=== PATIENT | male | born 1945 | race Caucasian/White ===

== ENCOUNTER 2018-02-22 23:16 | Emergency (ER) | payer MEDICARE ==
[~2018-02-22] VITALS: Ht 177.8 cm; Wt 96.2 kg
[~2018-02-22 23:16] MED LIST: GFCD10B PO; HYDR-707 PO; LISI20TA PO; Levamir; Metformin; NO HOME MEDICATIONS; OMEP-10 PO; TYLENOL#3 PO
--- OUTSIDE RECORDS SUMMARY | 2018-02-22 23:21 | XMS REPORT ---
Author NADIA Meadows Organization [employer] Address Unknown Phone Unavailable Care Team Providers Care Supervisor Metalizing Name Role Phone NADIA HSU CP Unavailable Allergies, Adverse Reactions, Alerts Substance Reaction Event Type Morphine Info Not Available Drug Allergy Problems Problem Type Condition ICD-9 Code Onset Dates Condition Status Problem Other abnormal glucose 790.29 Active Assessment Diabetes mellitus without mention of complication, type II or unspecified type, not stated as uncontrolled 250.00 Active Problem Diabetes mellitus without mention of complication, type II or unspecified type, not stated as uncontrolled 250.00 Active Problem Chronic airway obstruction, not elsewhere classified 496 Active Problem Cervicalgia 723.1 Active Problem Shortness of breath 786.05 Active Problem Unspecified prostatitis 601.9 Active Problem Diabetes mellitus without mention of complication, type II or unspecified type, uncontrolled 250.02 Active Problem Hypertrophy (benign) of prostate with urinary obstruction and other lower urinary tract symptoms [LUTS] 600.01 Active Medications Medication Code System Code Instructions Start Date End Date Status Dosage Metformin HCl [facility] [address]-51 1000 MG Orally Twice a day 1 tablet with meals GlipiZIDE [facility] [address]-75 10 MG Orally TAKE ONE TABLET BY MOUTH ONCE DAILY Lisinopril [facility] 43540432042 20MG TAKE ONE TABLET BY MOUTH ONCE DAILY, NEED FOLLOW UP APPT Finasteride [facility] [address]-34 5 MG Orally Once a day 1 tablet Procedures Procedure Coding System Code Date Office Visit, Est Pt., Level 3 CPT-4 54043 Apr 20, 2015 [facility] VISIT ESTABLISHED PATIENT CPT-4 G0467 Apr 20, 2015 Vital Signs Date/Time: Apr 20, 2015 Temperature 98.0 F Weight 209 lbs Height 70 in BMI 29.99 Index Blood Pressure Diastolic 80 mmHg Blood Pressure Systolic 152 mmHg Cardiac Monitoring Heart Rate 80 bpm Results No Known Results Summary Purpose [employer]ClinicalWorks Submission
--- OUTSIDE RECORDS SUMMARY | 2018-02-22 23:21 | XMS REPORT ---
Author Author NADIA HSU [facility] e[employer] Address Unknown Phone Unavailable Care Team Providers Care Superintendent Division Name Role Phone NADIA HSU CP Unavailable Allergies No Known Allergies Problems Problem Type Condition Code Onset Dates Condition Status Problem Unspecified prostatitis 601.9 Active Problem Hypertrophy (benign) of prostate with urinary obstruction and other lower urinary tract symptoms [LUTS] 600.01 Active Problem Shortness of breath 786.05 Active Assessment Chronic kidney disease N18.9 Active Problem Other abnormal glucose 790.29 Active Problem Chronic kidney disease N18.9 Active Problem Other and unspecified hyperlipidemia 272.4 Active Problem Altered metabolism due to diabetes E11.9 Active Problem Chronic airway obstruction, not elsewhere classified 496 Active Problem Diabetes mellitus without mention of complication, type II or unspecified type, uncontrolled 250.02 Active Problem Cervicalgia 723.1 Active Problem Diabetes mellitus without mention of complication, type II or unspecified type, not stated as uncontrolled 250.00 Active Medications No Known Medications Results No Known Results Summary Purpose [employer]ClinicalWorks Submission
--- OUTSIDE RECORDS SUMMARY | 2018-02-22 23:21 | XMS REPORT ---
Author NADIA Meadows [facility] e[employer] Address Unknown Phone Unavailable Care Team Providers Care Glass Worker Name Role Phone NADIA HSU CP Unavailable Allergies No Known Allergies Problems Problem Type Condition ICD-9 Code Onset [...] urinary tract symptoms [LUTS] 600.01 Active Medications No Known Medications Procedures Procedure Coding System Code Date VENIPUNCT, ROUTINE* CPT-4 62749 Apr 26, 2015 LAB NOT BILLED BY [facility] CPT-4 NOBLL Apr 26, 2015 Results Name Result Date Reference Range Unit Abnormality Flag ROUTINE VENIPUNCTURE Summary Purpose eClinicalWorks Submission
--- OUTSIDE RECORDS SUMMARY | 2018-02-22 23:21 | XMS REPORT ---
Author Author NADIA HSU [facility] [employer] Address Unknown Phone Unavailable Care Team Providers Care Underwear Finisher Name Role Phone NADIA HSU CP Unavailable Allergies No Known Allergies Problems Problem Type Condition Code Onset Dates Condition Status Problem Hypertension I10 Active Problem Hyperlipidemia E78.5 Active Problem Diabetes E11.9 Active Problem Chronic kidney disease N18.9 Active Problem Hypertrophy (benign) of prostate with urinary obstruction and other lower urinary tract symptoms [LUTS] 600.01 Active Problem COPD (chronic obstructive pulmonary disease) J44.9 Active Problem Altered metabolism due to diabetes E11.9 Active Medications Medication Code System Code Instructions Start Date End Date Status Dosage Finasteride [facility] 52870214020 5MG Orally Once a day 1 tablet Results No Known Results Summary Purpose [employer]ClinicalWorks Submission
--- OUTSIDE RECORDS SUMMARY | 2018-02-22 23:22 | XMS REPORT ---
Author Author NADIA HSU [facility] Address [address] [place] [address] Care Team Providers Care Rustic Terrazzo Setter Name Role Phone NADIA HSU Unavailable PROBLEMS Type Condition ICD9-CM Code [id number] Code Onset Dates Condition Status SNOMED Code Problem Hypertrophy (benign) of prostate with urinary obstruction and other lower urinary tract symptoms [LUTS] 600.01 Active 281715961 Assessment Hyperlipidemia E78.5 Apr, Active 48059596 Problem Diabetes E11.9 Active 76812034 Problem Hypertension I10 Active 38723931 Problem Altered metabolism due to diabetes E11.9 Active 06228974 Problem Chronic kidney disease N18.9 Active 429535336 Problem Hyperlipidemia E78.5 Active 54682110 Problem COPD (chronic obstructive pulmonary disease) J44.9 Active 36494571 ALLERGIES Unknown Allergies SOCIAL HISTORY No smoking Hx information available PLAN OF CARE VITAL SIGNS MEDICATIONS Unknown Medications RESULTS Name Result Date Reference Range LIPID PANEL 2016-05-21 Cholesterol, Total 118 100-199 Triglycerides 142 0-149 HDL Cholesterol 25 >39 VLDL Cholesterol Nathan 28 5-40 LDL Cholesterol Calc 65 0-99 Comment: CMP 2016-05-21 Glucose, Serum 180 65-99 BUN 10 8-27 Creatinine, Serum 1.05 0.76-1.27 eGFR If NonAfricn Am 72 >59 eGFR If Africn Am 83 >59 BUN/Creatinine Ratio 10 10-22 Sodium, Serum 139 134-144 Potassium, Serum 4.8 3.5-5.2 Chloride, Serum 97 97-108 Carbon Dioxide, Total 24 18-29 Calcium, Serum 9.7 8.6-10.2 Protein, Total, Serum 6.5 6.0-8.5 Albumin, Serum 4.3 3.6-4.8 Globulin, Total 2.2 1.5-4.5 A/G Ratio 2.0 1.1-2.5 Bilirubin, Total 0.7 0.0-1.2 Alkaline Phosphatase, S 77 39-117 AST (SGOT) 25 0-40 ALT (SGPT) 34 0-44 PROCEDURES Procedure Date Ordered Related Diagnosis Body Site [facility] May [facility], 2016 VENIPUNCT, ROUTINE* May 21, 2016 IMMUNIZATIONS No Known Immunizations
--- OUTSIDE RECORDS SUMMARY | 2018-02-22 23:22 | XMS REPORT ---
Author Author NADIA HSU [facility] Address [address] [place] [address] Care Team Providers Care Education Technician Name Role Phone NADIA HSU Unavailable PROBLEMS Type Condition ICD9-CM Code [id number] Code Onset Dates Condition Status SNOMED Code Problem Hypertrophy (benign) of prostate with urinary obstruction and other lower urinary tract symptoms [LUTS] 600.01 Active 610024256 Assessment Diabetes E11.9 Apr, Active 890716801 Problem Diabetes E11.9 Active 64985791 Problem Hypertension I10 Active 30234088 Problem Altered metabolism due to diabetes E11.9 Active 26258271 Problem Chronic kidney disease N18.9 Active 558392089 Problem Hyperlipidemia E78.5 Active 22476936 Problem COPD (chronic obstructive pulmonary disease) J44.9 Active 83717697 ALLERGIES Substance Reaction Event Type Date Status Morphine Unknown Drug Allergy Apr, Active SOCIAL HISTORY No smoking Hx information available PLAN OF CARE VITAL SIGNS Height 70 in 2016-05-20 Weight 208.8 lbs 2016-05-20 Heart Rate 80 bpm 2016-05-20 Respiratory Rate 20 2016-05-20 BMI 29.96 kg/m2 2016-05-20 Blood pressure systolic 142 mmHg 2016-05-20 Blood pressure diastolic 76 mmHg 2016-05-20 MEDICATIONS Medication Instructions Dosage Frequency Start Date End Date Duration Status Metformin HCl 1000MG Orally Once a day TAKE ONE TABLET BY MOUTH TWICE DAILY .... MUST HAVE FOLLOW UP APPT FOR FURTHER REFILLS 24h Active Lipitor 10 MG Orally Once a day 1 tablet 24h Apr, Active Trulicity 1.5 MG/0.5ML Subcutaneous once weekly 0.5 ml Apr, Active GlipiZIDE 5MG TAKE ONE TABLET BY MOUTH ONCE DAILY 24h Active Lisinopril 20MG TAKE ONE TABLET BY MOUTH ONCE DAILY, NEED FOLLOW UP APPT Active ProAir HFA 90 mcg/actuation inhale 2 puffs by Inhalation route every 4 hours as needed PRN shortness of breath/cough December, Active Ranitidine Acid Legal Technician 75 MG Orally Twice a day 1 tablet as needed 12h Active RESULTS Name Result Date Reference Range A1C (IN HOUSE) 2016-05-20 A1C IN HOUSE 10.1 4.3 - 5.6 % Previous A1c 7.7 Lot [id number] Exp date PROCEDURES Procedure Date Ordered Related Diagnosis Body Site GLYCATED HEMOGLOBIN TEST May 20, 2016 [facility] VISIT ESTABLISHED PATIENT May 20, 2016 Office Visit, Est Pt., Level 3 May 20, 2016 IMMUNIZATIONS No Known Immunizations
--- OUTSIDE RECORDS SUMMARY | 2018-02-22 23:22 | XMS REPORT ---
Author Author NADIA HSU [facility] eClinicalWorks Address Unknown Phone Unavailable Care Team Providers Care Recreation Coordinator Name Role Phone NADIA HSU CP Unavailable Allergies No Known Allergies Problems Problem Type Condition Code Onset Dates Condition Status Problem Unspecified prostatitis 601.9 Active Problem Hypertrophy (benign) of prostate with urinary obstruction and other lower urinary tract symptoms [LUTS] 600.01 Active Problem Shortness of breath 786.05 Active Problem Other abnormal glucose 790.29 Active [...] Medications Results No Known Results Summary Purpose [employer] Submission
--- OUTSIDE RECORDS SUMMARY | 2018-02-22 23:22 | XMS REPORT ---
Author Author NADIA HSU [facility] eClinicalWorks Address Unknown Phone Unavailable Care Team Providers Care Lehr Operator Name Role Phone NADIA HSU CP Unavailable Allergies No Known Allergies Problems Problem Type Condition ICD-9 Code Onset Dates Condition Status Assessment Other and unspecified hyperlipidemia 272.4 Active Problem Unspecified prostatitis 601.9 Active Problem Other abnormal glucose 790.29 Active Problem Cervicalgia 723.1 Active Problem Diabetes mellitus without mention of complication, type II or unspecified type, not stated as uncontrolled 250.00 Active Problem Other and unspecified hyperlipidemia 272.4 Active Problem Hypertrophy (benign) of prostate with urinary obstruction and other lower urinary tract symptoms [LUTS] 600.01 Active Problem Shortness of breath 786.05 Active Problem Chronic airway obstruction, not elsewhere classified 496 Active Problem Diabetes mellitus without mention of complication, type II or unspecified type, uncontrolled 250.02 Active Medications Medication Code System Code Instructions Start Date End Date Status Dosage Lipitor [facility] [address]-25 10 MG Orally Once a day May 01, 2015 1 tablet Results No Known Results Summary Purpose eClinicalWorks Submission
--- OUTSIDE RECORDS SUMMARY | 2018-02-22 23:22 | XMS REPORT ---
Author Author NADIA HSU [facility] Address [address] [place] [address] Care Team Providers Care Porcelain Waxer Name Role Phone NADIA HSU Unavailable PROBLEMS Type Condition ICD9-CM Code [id number] Code Onset Dates Condition Status SNOMED Code Problem Hypertrophy (benign) of prostate with urinary obstruction and other lower urinary tract symptoms [LUTS] 600.01 Active 010154515 Problem Hyperlipidemia E78.5 Active 41359575 Problem Chronic kidney disease N18.9 Active 236324624 Problem Type 2 diabetes mellitus with diabetic chronic kidney disease E11.22 Active 81735319 Problem Chronic kidney disease, 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 Active 046946697 Problem Diabetes E11.9 Active 55244017 Problem COPD (chronic obstructive pulmonary disease) J44.9 Active 83787088 Problem BPH NOS w ur obs/LUTS N40.1 Active 786273344 Problem Hypertension I10 Active 25213922 ALLERGIES No Information ENCOUNTERS Encounter Location Date Diagnosis [facility] [id number] [place] [address] Oct, BPH NOS w ur obs/LUTS N40.1 ; COPD (chronic obstructive pulmonary disease) J44.9 ; Hyperlipidemia E78.5 ; Hypertension I10 ; Type 2 diabetes mellitus with diabetic chronic kidney disease E11.22 and Chronic kidney disease, 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 [facility] [address], [place] [address] Oct, Diabetes E11.9 [facility] [id number] [place] [address] 138[address] Mar, COPD (chronic obstructive pulmonary disease) J44.9 [facility] [address] [place] [address] Mar, Hyperlipidemia E78.5 [facility] [address], [place] [address] Feb, [facility] [address], [place] [address] Feb, [facility] [address], [place] [address] Feb, Diabetes E11.9 [facility] [address], [place] [address] Feb, Diabetes E11.9 [facility] [address], [place] [address] Feb, Hypertension I10 ; Diabetes E11.9 and COPD (chronic obstructive pulmonary disease) J44.9 [facility] [address], [place] [address] Aug, Diabetes E11.9 and Hypertension I10 [facility] [address], [place] [address] May, [facility] [address], [place] [address] Apr, Hyperlipidemia E78.5 [facility] [address], [place] [address] Apr, Diabetes E11.9 and Hyperlipidemia E78.5 [facility] [address], [place] [address] Jan, Chronic kidney disease N18.9 [facility] [id number] [address] Sep, Diabetes E11.9 ; Hypertension I10 ; Hyperlipidemia E78.5 and COPD (chronic obstructive pulmonary disease) J44.9 [facility] [address], [place] [address] May, [facility] [address], [place] [address] May, Altered metabolism due to diabetes E11.9 [place] [address], [place] [address] May, Chronic kidney disease N18.9 [place] [id number] [place] [id number]- [address] May, Chronic kidney disease N18.9 and Back pain M54.9 [place] [id number] [place] [address] Apr, Abdominal pain 789.00 [place] [id number] [place] [address]- 3[address] Apr, Other and unspecified hyperlipidemia 272.4 [place] [id number] [place] [address]- 355[address] Apr, Diabetes mellitus without mention of complication, type II or unspecified type, not stated as uncontrolled 250.00 [place] [id number] [place] [address] Mar, Diabetes mellitus without mention of complication, type II or unspecified type, not stated as uncontrolled 250.00 [place] [id number] [place] [address] Feb, Diabetes mellitus without mention of complication, type II or unspecified type, uncontrolled 250.02 ; Diabetes mellitus without mention of complication, type II or unspecified type, not stated as uncontrolled 250.00 and Acute sinusitis 461.9 [place] [address] [place] [address]- 3238 Nov, [place] [address] [place] [address]- 4088 Nov, [place] [id number] [place] [address] 352755- 7580 Sep, [place] [address] [place] [address] [id number]- 5511 Sep, [place] [id number] [place] [address] [place] [address] Jul, [facility] [place] [facility] [address] [id number] [place] [address] Jul, [facility] [place] [facility] [address] [id number] [place] [address] Jul, [facility] [place] [facility] [address] [id number] [place] [address] Jul, [facility] [place] [facility] [address] [id number] [place] [address]- 1007 Jul, [facility] [place] [facility] [address] [id number] [place] Jul, [facility] [place] [facility] [address] [id number] [place] [address]- 9274 Jun, [facility] [place] [facility] [address] [id number] [place] [address]- 1672 Jun, [facility] [place] [facility] [address] [id number] [place] [address]- 1339 May, [facility] [place] [facility] [address] [id number] [place] [address]- 39[address] May, [facility] [place] [facility] [address] [id number] [place] [address]- 7456 May, [facility] [place] [facility] [address] [id number] [place] [address]- 2609 May, [facility] [place] [facility] [address] [id number], [place] [address] Mar, [facility] [place] [facility] [address] [id number] [place] [address]- 0765 Mar, [facility] [place] [facility] [address] [id number] [place] [address]- 5[address] December, [facility] [place] [facility] [address] [id number] [place] [address]- 75[address] December, [facility] [place] [facility] [address] [id number] [place] [address]- [address] 08 Nov, 2013 [facility] [place] [facility] [address] [id number] [place] [address]- 0743 Nov, [facility] [place] [facility] [address] [id number] [place] [address]- 3[address] Nov, [facility] [place] [facility] [address] [id number] [place] [address]- 8953 Nov, [facility] [place] [facility] [address] [id number] [place] [address]- [address] Nov, [facility] [place] [facility] [address] [id number] [place] [address]- 6189 Nov, [facility] [place] [facility] [address] [id number] [place] [address]- 1577 Nov, [facility] [place] [facility] [address] [id number] [place] [address]- 3012 Nov, [facility] [place] [facility] [address] [id number] [place] [address]- 2784 Nov, [facility] [place] [facility] [address] [id number] [place] [address]- 6115 Nov, [facility] [place] [facility] [address] [id number] [place] [address]- 3865 Oct, [facility] [place] [facility] [address] [id number] [place] [address]- 9342 Oct, [facility] [place] [facility] [address] [id number] [place] [address]- 7467 Oct, [facility] [place] [facility] [address] [id number] [place] [address]- 2308 Oct, [facility] [place] [facility] [address] [id number] [place] [address]- 6517 Sep, [facility] [place] [facility] [address] [id number] [place] [address]- 9722 Sep, [facility] [place] [facility] [address] [id number] [place] [address]- 6280 Aug, [facility] [place] [facility] [address] [id number] [place] [address]- 9046 Aug, [facility] [place] [facility] [address] [id number] [place] [address]- 3945 Aug, [facility] [place] [facility] [address] [id number] [place] [address]- 2711 Aug, [facility] [place] [facility] [address] [id number] [place] [address]- 0678 Jun, [facility] [place] [facility] [address] [id number] [place] [address]- 8552 Jun, [facility] [place] [facility] [address] [id number] [place] [address]- 0914 Mar, [facility] [place] [facility] [address] [id number] [place] [address]- 5018 Feb, [facility] [place] [facility] [address] [id number] [place] [address]- 5652 Feb, [facility] [place] [facility] [address] [id number] [place] [address]- 4654 Feb, [facility] [place] [facility] [address] [id number] [place] [address]- 9809 Feb, [facility] [place] [facility] [address] [id number] [place] [address]- 1259 Jan, [facility] [place] [facility] [address] [id number] [place] [address]- 7893 Oct, [facility] [place] [facility] [address] [id number] [place] [address]- 1559 Sep, [facility] [place] [facility] [address] [id number] [place] [address]- 2907 Sep, [facility] [place] [facility] [address], [place] [address]- [address] Aug, [facility] [address], [place] [address]- 69[address] Aug, [facility] [address], [place] [address]- 8436 Jun, [facility] [address], [place] [address]- 2606 Jun, [facility] [address], [place] [address]- 5622 Jun, [facility] [address], [place] [address]- 8278 Jun, [facility] [address], [place] [address]- 4306 Apr, [facility] [address] [place] [address]- 5970 December, [facility] [address], [place] [address]- [address] Sep, [facility] [address], [place] [address]- 8288 Sep, [facility] [address], [place] [address]- 7876 Sep, [facility] [address], [place] [address]- 5763 Aug, [facility] [address], [place] [address]- 1395 Aug, [facility] [address] Aug, IMMUNIZATIONS No Known Immunizations SOCIAL HISTORY Never Assessed REASON FOR VISIT Refill request PLAN OF CARE VITAL SIGNS MEDICATIONS Medication Instructions Dosage Frequency Start Date End Date Duration Status Finasteride 5MG Orally Once a day 1 tablet 24h 90 Active RESULTS No Results PROCEDURES No Known procedures INSTRUCTIONS MEDICATIONS ADMINISTERED No Known Medications MEDICAL (GENERAL) HISTORY Type Description Date Medical History Type II diabetic Medical History hypertension Surgical History colon surgery Surgical History scar tissue removal Surgical History bilateral cataract surgeries Hospitalization History surgery
--- OUTSIDE RECORDS SUMMARY | 2018-02-22 23:22 | XMS REPORT ---
Author Author NADIA HSU [facility] Address [address] [place] [address] Care Team Providers Care Online Banking Specialist Name Role Phone NADIA HSU Unavailable PROBLEMS Type Condition ICD9-CM Code HBN74-UI Code Onset Dates Condition Status SNOMED Code Problem Hypertrophy (benign) of prostate with urinary obstruction and other lower urinary tract symptoms [LUTS] 600.01 Active 976184445 Problem Hyperlipidemia E78.5 Active 86204254 Problem Chronic kidney disease N18.9 Active 765674406 Problem Type 2 diabetes mellitus with diabetic chronic kidney disease E11.22 Active 61896352 Problem Chronic kidney disease, 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 Active 649353017 Problem Diabetes E11.9 Active 28728379 Problem COPD (chronic obstructive pulmonary disease) J44.9 Active 53686526 Problem BPH NOS w ur obs/LUTS N40.1 Active 885384163 Problem Hypertension I10 Active 89239978 ALLERGIES No Information ENCOUNTERS Encounter Location Date Diagnosis [facility] [id number] [place] [address] Oct, BPH NOS w ur obs/LUTS N40.1 ; COPD (chronic obstructive pulmonary disease) J44.9 ; Hyperlipidemia E78.5 ; Hypertension I10 ; Type 2 diabetes mellitus with diabetic chronic kidney disease E11.22 and Chronic kidney disease, 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 [facility] [address] [address] Oct, Diabetes E11.9 [facility] [id number] [place] [address]- 1761 Mar, COPD (chronic obstructive pulmonary disease) J44.9 [facility] [address] [place] [address]- 9561 Mar, Hyperlipidemia E78.5 [facility] [address], [place] [address] Feb, [facility] [address] [address] Feb, [facility] [address] [place] [address] Feb, Diabetes E11.9 [facility] [address] [address] Feb, Diabetes E11.9 [facility] [address] [place] [address] Feb, Hypertension I10 ; Diabetes E11.9 and COPD (chronic obstructive pulmonary disease) J44.9 [facility] [address] [address] Aug, Diabetes E11.9 and Hypertension I10 [facility] [address] [place] [address] May, [facility] [address] [place] [address] Apr, Hyperlipidemia E78.5 [facility] [address] [address] Apr, Diabetes E11.9 and Hyperlipidemia E78.5 [facility] [address] [address] Jan, Chronic kidney disease N18.9 [facility] [id number] [address] Sep, Diabetes E11.9 ; Hypertension I10 ; Hyperlipidemia E78.5 and COPD (chronic obstructive pulmonary disease) J44.9 [facility] [address] [address] May, [facility] [address] [address] May, Altered metabolism due to diabetes E11.9 [place] [address] [address] May, Chronic kidney disease N18.9 [facility] [id number] [place] [id number] May, Chronic kidney disease N18.9 and Back pain M54.9 [facility] [id number] [place] [address]- 7862 Apr, Abdominal pain 789.00 [place] [facility] [id number] [place] [address]- 9465 Apr, Other and unspecified hyperlipidemia 272.4 [facility] [facility] [id number] [place] [address]- 5646 Apr, Diabetes mellitus without mention of complication, type II or unspecified type, not stated as uncontrolled 250.00 [place] [facility] [id number] [place] [address]- 1370 Mar, Diabetes mellitus without mention of complication, type II or unspecified type, not stated as uncontrolled 250.00 [facility] [facility] [id number] [place] [address]- 96[address] Feb, Diabetes mellitus without mention of complication, type II or unspecified type, uncontrolled 250.02 ; Diabetes mellitus without mention of complication, type II or unspecified type, not stated as uncontrolled 250.00 and Acute sinusitis 461.9 [place] [address] [place] [address]- 5700 Nov, [place] [address] [place] [address]- 7[address] Nov, [facility] [id number] [place] [address] 887455- 4471 Sep, [place] [address] [place] [address] [id number]- 4268 Sep, [facility] [facility] [id number] [place] [address] [place] [address] Jul, [facility] [place] [facility] [address] [id number] [place] [address] Jul, [facility] [place] [facility] [address] [id number] [place] [address] Jul, [facility] [place] [facility] [address] [id number] [place] [address]- 2640 Jul, [facility] [place] [facility] [address] [id number] [place] [address] 0860 Jul, [facility] [place] [facility] [address] [id number] [place] [address] Jul, [facility] [place] [facility] [address] [id number] [place] [address]- 2704 Jun, [facility] [place] [facility] [address] [id number] [place] [address]- 6941 Jun, [facility] [place] [facility] [address] [id number] [place] [address]- 1159 May, [facility] [place] [facility] [address] [id number] [place] [address] 1986 May, [facility] [place] [facility] [address] [id number] [place] [address]- 0156 May, [facility] [place] [facility] [address] [id number] [place] [address]- 1721 May, [facility] [place] [facility] [address] [id number] [address] Mar, [facility] [place] [facility] [address] [id number] [place] [address]- 6165 Mar, [facility] [place] [facility] [address] [id number] [place] [address]- 6685 December, [facility] [place] [facility] [address] [id number] [place] [address]- 8867 December, [facility] [place] [facility] [address] [id number] [place] [address]- 2822 08 Nov, 2013 [facility] [place] [facility] [address] [id number] [place] [address]- 0172 Nov, [facility] [place] [facility] [address] [id number] [place] [address]- 7696 Nov, [facility] [place] [facility] [address] [id number] [place] [address]- 6410 Nov, [facility] [place] [facility] [address] [id number] [place] [address]- 6605 Nov, [facility] [place] [facility] [address] [id number] [place] [address]- 0552 Nov, [facility] [place] [facility] [address] [id number] [place] [address]- 5581 Nov, [facility] [place] [facility] [address] [id number] [place] [address]- 5482 Nov, [facility] [place] [facility] [address] [id number] [place] [address]- 0325 Nov, [facility] [place] [facility] [address] [id number] [place] [address]- 6226 Nov, [facility] [place] [facility] [address] [id number] [place] [address]- 1736 Oct, [facility] [place] [facility] [address] [id number] [place] [address]- 1356 Oct, [facility] [place] [facility] [address] [id number] [place] [address]- 7333 Oct, [facility] [place] [facility] [address] [id number] [place] [address]- 1513 Oct, [facility] [place] [facility] [address] [id number] [place] [address]- 8268 Sep, [facility] [place] [facility] [address] [id number] [place] [address]- 2286 Sep, [facility] [place] [facility] [address] [id number] [place] [address]- 1159 Aug, [facility] [place] [facility] [address] [id number] [place] [address]- 1560 Aug, [facility] [place] [facility] [address] [id number] [place] [address]- 0233 Aug, [facility] [place] [facility] [address] [id number] [place] [address]- 8543 Aug, [facility] [place] [facility] [address] [id number] [place] [address]- 0282 Jun, [facility] [place] [facility] [address] [id number] [place] [address]- 1563 Jun, [facility] [place] [facility] [address] [id number] [place] [address]- 7734 Mar, [facility] [place] [facility] [address] [id number] [place] [address]- 4763 Feb, [facility] [place] [facility] [address] [id number] [place] [address]- 7786 Feb, [facility] [place] [facility] [address] [id number] [place] [address]- 9549 Feb, [facility] [place] [facility] [address] [id number] [place] [address]- 9178 Feb, [facility] [place] [facility] [address] [id number] [place] [address]- 1565 Jan, [facility] [place] [facility] [address] [id number] [place] [address]- 4567 Oct, [facility] [place] [facility] [address] [id number] [place] [address]- 2499 Sep, [facility] [place] [facility] [address] [id number] [place] [address]- 6440 Sep, [facility] [place] [facility] [address] [place] [address] Aug, [facility] [address] [place] [address]- [address] Aug, [facility] [address] Jun, [facility] [address] [place] [address]- 1468 Jun, [facility] [address] [place] [address]- 2927 Jun, [facility] [address] [place] [address]- 0161 Jun, [facility] [address] [place] [address]- 9753 Apr, [facility] [address] [place] [address]- 4775 December, [facility] [address] [address]- 5190 Sep, [facility] [address] [place] [address]- 5298 Sep, [facility] [address] [place] [address]- 9196 Sep, [facility] [address] [place] [address]- 5201 Aug, [facility] [id number] [address]- 5[address] Aug, [facility] [address] [address] Aug, IMMUNIZATIONS No Known Immunizations SOCIAL HISTORY Never Assessed REASON FOR VISIT Refill request PLAN OF CARE VITAL SIGNS MEDICATIONS No Known Medications RESULTS No Results PROCEDURES No Known procedures INSTRUCTIONS MEDICATIONS ADMINISTERED No Known Medications MEDICAL (GENERAL) HISTORY Type Description Date Medical History Type II diabetic Medical History hypertension Surgical History colon surgery Surgical History scar tissue removal Surgical History bilateral cataract surgeries Hospitalization History surgery
--- OUTSIDE RECORDS SUMMARY | 2018-02-22 23:23 | XMS REPORT ---
Author Author NADIA HSU [facility] Address Unknown Phone Unavailable Care Team Providers Care Edi Manager Name Role Phone NADIA HSU Unavailable Allergies No Known Allergies Problems Problem Type Condition Code Onset Dates Condition Status Problem Unspecified prostatitis 601.9 Active Problem Hypertrophy (benign) of prostate with urinary obstruction and other lower urinary tract symptoms [LUTS] 600.01 Active Problem Shortness of breath 786.05 Active Assessment Altered metabolism due to diabetes E11.9 Active Problem Other abnormal glucose 790.29 Active [...] not stated as uncontrolled 250.00 Active Medications Medication Code System Code Instructions Start Date End Date Status Dosage Jardiance [facility] [address]-49 25 MG Orally Once a day May 29, 2015 1 tablet Results No Known Results Summary Purpose eClinicalWorks Submission
[2018-02-22] MEDS ORDERED: HYDR25TA4 PO (23:24)
[2018-02-22] MEDS ORDERED: FINA5TAB6 PO (23:24)
[2018-02-22] MEDS ORDERED: ATOR10TA66 PO (23:24)
[2018-02-22] MEDS ORDERED: GLIP5TAB13 PO (23:24)
[2018-02-22] MEDS ORDERED: METF10002 PO (23:24)
--- NOTE | 2018-02-22 23:36 | ED Back Pain ---
General Chief Complaint: Back Problems Stated Complaint: BACK PAIN Nursing Triage Note: c/o back pain x 4 or 5 days Nursing Sepsis Screen: No Definite Risk Source of Information: Patient, Family Exam Limitations: No Limitations History of Present Illness Date Seen by Provider: Feb 22, 2018 Time Seen by Provider: 23:29 Initial Comments Patient presents to the ER with his with chief complaint for a couple weeks now he's had some low back pain progressively getting worse. He does not have a history of a lot of back pain and he has not really taken anything but some Tylenol for it. He says he does not like taking pills. He would be willing to do a muscle relaxant however. He says in the past his primary care doctor has suggested he might need an MRI for his back but he has resisted doing any imaging. He does have a history of BPH and is on finasteride. He is having no problems with dysuria, hesitancy, however he does have some pain wrapping around to his groin from his back pain. No history of kidney stones. No hematuria. He has had extensive surgery on his belly secondary to a colorectal cancer removed with a partial colectomy, colostomy and reanastomosis over 10 years ago. He's having no problems with bowel movements and had one today normal formed. No fevers chills nausea vomiting weakness, incontinence, hesitancy of urine, saddle anesthesia, or radiation of his pain. Allergies and Home Medications Allergies Coded Allergies: No Known Drug Allergies (Unverified , 12/05/10) Home Medications Prednisone 20 Mg Tab, 40 MG PO DAILY Prescribed by: GUDELIA LOO on 02/23/18 0031 Patient Home Medication List Home Medication List Reviewed: Yes Constitutional: No chills, No diaphoresis EENTM: No ear pain, No eye pain Respiratory: No cough, No short of breath Cardiovascular: No chest pain, No Hx of Intervention Gastrointestinal: No abdominal pain, No constipation, No diarrhea, No nausea Genitourinary: No discharge, No dysuria Musculoskeletal: see HPI, back pain Skin: No pruritus, No rash Past Lrijdix-Swwmku-Djhnsf Hx Patient Social History Alcohol Use: Denies Use Recreational Drug Use: No Smoking Status: Former Smoker Recent Foreign Travel: No Contact w/Someone Who Travel: No Recent Infectious Disease Expo: No Recent Hopitalizations: No Past Medical History Surgeries: Yes (Colon resection) Respiratory: No Cardiac: Yes Hypertension Neurological: No Reproductive Disorders: No Genitourinary: No Gastrointestinal: Yes Gastroesophageal Reflux Musculoskeletal: No Endocrine: Yes Diabetes, Non-Insulin dep Cancer: Yes Colon Psychosocial: No Integumentary: No Blood Disorders: No Physical Exam Vital Signs Vital Signs - First Documented 02/22/18 23:22 Temp 98.2 Pulse 80 Resp 18 B/P (MAP) 180/81 (114) Pulse Ox 98 Capillary Refill : Less Than 3 Seconds General Appearance: WD/WN, Mild Distress HEENT: PERRL/EOMI, Pharynx Normal Neck: Full Range of Motion, Normal Inspection Cardiovascular: Regular Rate, Rhythm, No Edema, Normal Peripheral Pulses Respiratory: Chest Non Tender, Lungs Clear, No Accessory Muscle Use, No Respiratory Distress Gastrointestinal: Normal Bowel Sounds, Non Tender, Soft Back: Normal Inspection, No CVA Tenderness, Vertebral Tenderness (midline lumbar) Extremity: Normal Capillary Refill, Non Tender, No Calf Tenderness, No Pedal Edema Neurologic/Psychiatric: Alert, Oriented x3, No Motor/Sensory Deficits, Normal Mood/Affect Progress/Results/Core Measures Results/Orders My Orders Orders - GUDELIA LOO Ketorolac Injection (Toradol Injection) (02/22/18 23:45) Ct Lumbar Spine Wo (02/22/18 23:36) Orphenadrine Injection (Norflex Injectio (02/22/18 23:45) Medications Given in ED Current Medications Medications Dose Ordered Sig/Monse Route Start Time Stop Time Status Last Admin Dose Admin Orphenadrine Citrate 60 mg ONCE ONCE IM 02/22/18 23:45 02/22/18 23:47 DC 02/23/18 00:17 60 MG Vital Signs/I&O 02/22/18 23:22 Temp 98.2 Pulse 80 Resp 18 B/P (MAP) 180/81 (114) Pulse Ox 98 Blood Pressure Mean: 114 Progress Progress Note : Time: 23:46 Progress Note He has declined any kind of pain medicine but he says he would take a muscle relaxants or any give him Norflex. We discussed doing imaging now or following up with her PCP for MRI and he would prefer to do the CT scan tonight. We also discussed steroids and he'll be okay with some prednisone. He has diabetes but is not on short acting insulin. We have warned him that could increase his blood sugars and we'll put him on 40 mg daily for 5 days. Diagnostic Imaging Diagonstic Imaging: CT (no contrast) Plain Films/CT/US/NM/MRI: other (lumbar spine) Comments No acute osseous abnormality. Mild loss of lumbar curvature. No fracture or subluxation. Soft tissues unremarkable. No acute fracture or subluxation. Reviewed: Reviewed [facility] Study, Reviewed by Me Departure Impression Primary Impression: Lumbago Qualified Codes: M54.5 - Low back pain Disposition: HOME, SELF-CARE Condition: Stable Departure-Patient Inst. Decision time for Depature: 00:41 Referrals: NADIA HSU MD (PCP/Family) Primary Care Physician Patient Instructions: Low Back Pain (DC) Add. Discharge Instructions: You can use an ice pack alternated with heating pads. You can use topical creams such as icy hot or Biofreeze. You can use Tylenol 1000 mg every 8 hours in addition to ibuprofen 800 mg every 8 hours. If you're having back spasms of the muscles of your back you can take one tablet of the cyclobenzaprine every 8 hours as needed. If you still feel drowsy when you wake up then cut the tablet in half next time. You can go see a chiropractor. group cio the prednisone and take 2 tablets daily for the next 5 days. Prednisone may make your blood sugar rise you may have facial flushing, however and feeling of being wired or increased energy. If you're still having a lot of back pain after a week or 2 you can follow-up with her primary care doctor and discussed potentially doing physical therapy. If you start to have incontinence of your bowel or bladder, weakness and falls, numbness then you should return to the ER for evaluation. All discharge instructions reviewed with patient and/or family. Voiced understanding. Scripts Prednisone (Prednisone) 20 Mg Tab 40 MG PO DAILY for 5 Days, #10 TAB 0 Refills Prov: GUDELIA LOO 02/23/18 Copy Copies To 1: DAWNA TEIXEIRA TITUS J Feb 22, 2018 23:36
[2018-02-22] MEDS ORDERED: KETOROLAC 30 MG/ML VIAL IM ONE (23:45)
[2018-02-22] MEDS ORDERED: ORPHENADRINE 60 MG/2 ML (NORFLEX) AMP IM ONE (23:45)
[2018-02-23] MEDS ORDERED: PRD20T PO (00:31)
[2018-02-23 00:53] VITALS: BP 180/81
[2018-02-23] MEDS ORDERED: CYCL10TA9 PO (00:53)
--- NOTE | 2018-02-23 07:43 | Diagnostic Imaging Report ---
PROCEDURE: CT lumbar spine without contrast. TECHNIQUE: Multiple contiguous axial images were obtained through the lumbar spine without the use of intravenous contrast. Sagittal and coronal reformations were then performed. INDICATION: Lower back pain x5 days. COMPARISON: CT abdomen dated 02/02/2011 FINDINGS: Static alignment of the lumbar spine shows slight grade 1 retrolisthesis at the L2-L3 level. Otherwise, static alignment is maintained. There is no evidence of jumped facets. Vertebral body heights are preserved. There is no evidence of acute fracture. No bony fragments are seen within the spinal canal. There are moderate multilevel degenerative changes consisting of intervertebral disc height loss with mild multilevel disc bulges and multilevel facet arthropathy. Evaluation of the spinal canal is suboptimally evaluated on this routine noncontrast CT lumbar spine, but there does appear to be perhaps mild spinal canal narrowing at the L2-L3 through L4-L5 levels. Evaluation of the surrounding pre-and paravertebral soft tissue structures demonstrates partially visualized prominent soft tissue density interposed between the IVC and abdominal aorta at the level of the L2 and L3 intervertebral disc space measuring 3.1 x 5.1 cm. This does obscure borders of the IVC. A few other prominent appearing retroperitoneal lymph nodes are also noted more superiorly. IMPRESSION: 1. No CT evidence of acute fracture or dislocation of the lumbar spine. 2. Findings suspicious for prominent retroperitoneal adenopathy as described above. Correlation with postcontrast CT abdomen and pelvis is recommended. These findings were not discussed on [facility] report. Additional findings will be called. Called to Dr. Meléndez at 7:40 a.m. by cvb. Dictated by: Dictated on workstation # [id number]
== END 2018-02-23 00:53 | disposition home or self-care (01) ==
LOC: EDUNIT# 23:16 → ER 23:18
DX: M54.5 Low back pain (principal); I10 Essential (primary) hypertension; K21.9 Gastro-esophageal reflux disease without esophagitis; Z85.038 Personal history of other malignant neoplasm of large intestine; Z90.49 Acquired absence of other specified parts of digestive tract; Z87.891 Personal history of nicotine dependence; Z79.52 Long term (current) use of systemic steroids
CPT/HCPCS: 72131; 96372

== ENCOUNTER → 2018-03-10 | Outpatient (CLI) | payer MEDICARE ==
[~2018-03-10] MED LIST changes: +ATOR10TA66 PO; +CYCL10TA9 PO; +FINA5TAB6 PO; +GLIP5TAB13 PO; +HYDR25TA4 PO; +IOHEXOL 350 MG/ML 100 ML (OMNIPAQUE 350) VIAL IV ONE; +LISI-552 PO; +METF10002 PO; +NS 250 ML (IVPB) BAG IV ONE; +PRD20T PO
[2018-03-10 09:55] LABS: CREATININE SERUM 1.44 MG/DL (0.60-1.30)
--- NOTE | 2018-03-10 10:53 | Diagnostic Imaging Report ---
PROCEDURE: CT abdomen and pelvis with contrast. TECHNIQUE: Multiple contiguous axial images were obtained through the abdomen and pelvis after administration of intravenous contrast. INDICATION: Low back pain radiating into the front. Patient has history of colon carcinoma. Comparison is made with prior CT from 02/02/2011. FINDINGS: The lung bases are clear. There is an ill-defined low-density mass in the right lobe of the liver measuring 19 mm in size. No other liver masses are seen. Multiple stones within the gallbladder are noted. No biliary duct dilatation is seen. The pancreas and spleen are unremarkable apart from multiple granulomas in the spleen. No adrenal mass is detected. Kidneys are unremarkable apart from a small cyst lower pole right kidney. Aorta is calcified but nonaneurysmal. There has been significant increase in central retroperitoneal and portacaval lymphadenopathy. Portacaval node measures 4.9 x 2.5 cm compared with 3.7 x 1.0 cm. Some bulky lymph nodes in the central retroperitoneum. Aortic caval node at the level of the kidneys measures 5.4 x 3.6 cm compare with 1.6 x 1.1 cm. Multiple additional slightly prominent lymph nodes in the central retroperitoneum are noted as well. Bowel loops are nondilated, however, there is suggestion of a circumferential thickening and questionable mass in the ascending colon near the hepatic flexure. Small bowel loops are normal caliber. No obstruction is seen. There is no ascites. Bladder is unremarkable. No definite pelvic lymphadenopathy is seen. IMPRESSION: 1. Cholelithiasis. 2. 19 mm low-density mass right lobe of the liver. 3. Significant increase in portacaval and central retroperitoneal lymphadenopathy when compared with study from 2011. Features are concerning for a metastatic disease. There is also a questionable mass in the ascending colon, as described correlation with endoscopy would be recommended. No other significant abnormalities are seen. Dictated by: Dictated on workstation # [id number]
== END ==
LOC: RAD 09:08
PROVIDERS: ATTEND Internal Medicine
DX: K80.20 Calculus of gallbladder without cholecystitis without obstruction (principal); R16.0 Hepatomegaly, not elsewhere classified; R59.0 Localized enlarged lymph nodes; N18.2 Chronic kidney disease, stage 2 (mild); Z85.038 Personal history of other malignant neoplasm of large intestine
CPT/HCPCS: 36415; 74177; 82565; 84520

== ENCOUNTER 2018-03-16 12:21 | Day surgery (SDC) | payer MEDICARE ==
[~2018-03-16] VITALS: Ht 177.8 cm; Wt 96.4 kg
[~2018-03-16 12:21] MED LIST changes: -IOHEXOL 350 MG/ML 100 ML (OMNIPAQUE 350) VIAL IV ONE; -LISI-552 PO; -NS 250 ML (IVPB) BAG IV ONE
--- OUTSIDE RECORDS SUMMARY | 2018-03-16 12:27 | XMS REPORT ---
Author NADIA [facility] eClinicalWorks Address Unknown Phone Unavailable Care Team Providers Care Microbiology Supervisor Name Role Phone NADIA [facility] CP Unavailable Allergies, Adverse Reactions, Alerts Substance Reaction Event Type Morphine Info Not Available Drug Allergy Problems Problem Type Condition Code Onset Dates Condition Status Problem Other abnormal glucose 790.29 Active Problem Shortness of breath 786.05 Active Problem Unspecified prostatitis 601.9 Active Assessment Back pain M54.9 Active Assessment Chronic kidney disease N18.9 Active Problem Other and unspecified hyperlipidemia 272.4 Active Problem Cervicalgia 723.1 Active Problem Chronic kidney disease N18.9 Active Problem Diabetes mellitus without mention of complication, type II or unspecified type, uncontrolled 250.02 Active Problem Hypertrophy (benign) of prostate with urinary obstruction and other lower urinary tract symptoms [LUTS] 600.01 Active Problem Diabetes mellitus without mention of complication, type II or unspecified type, not stated as uncontrolled 250.00 Active Problem Chronic airway obstruction, not elsewhere classified 496 Active Medications Medication Code System Code Instructions Start Date End Date Status Dosage Zantac [facility] [address]-64 150 MG Orally Twice a day May 17, 2015 1 tablet Metformin HCl [facility] 36580413417 1000MG TAKE ONE TABLET BY MOUTH TWICE DAILY .... MUST HAVE FOLLOW UP APPT FOR FURTHER REFILLS Jardiance [facility] [address]-59 25 MG Orally Once a day 1 tablet tramadol [facility] 0 50 mg Jul 31, 2014 take 1 tablet by Oral route every 6 hours as needed PRN pain GlipiZIDE [facility] 35592668710 5MG TAKE ONE TABLET BY MOUTH ONCE DAILY Finasteride [facility] 95705061997 5MG TAKE ONE TABLET BY MOUTH ONCE DAILY Lipitor [facility] [address]-00 10 MG Orally Once a day May 01, 2015 1 tablet Lisinopril [facility] 68723236470 20MG TAKE ONE TABLET BY MOUTH ONCE DAILY, NEED FOLLOW UP APPT Procedures Procedure Coding System Code Date URINALYSIS, AUTO, W/O SCOPE CPT-4 08596 May 28, 2015 FQ VISIT ESTABLISHED PATIENT CPT-4 G0467 May 28, 2015 LAB NOT BILLED BY [facility] CPT-4 NOBLL May 28, 2015 VENIPUNCT, ROUTINE* CPT-4 61976 May 28, 2015 Office Visit, Est Pt., Level 4 CPT-4 19547 May 28, 2015 Vital Signs Date/Time: May 28, 2015 Temperature 98.0 F Weight 205 lbs Height 70 in BMI 29.41 Index Blood Pressure Diastolic 76 mmHg Blood Pressure Systolic 138 mmHg Cardiac Monitoring Heart Rate 76 bpm Results Name Result Date Reference Range Unit Abnormality Flag ROUTINE VENIPUNCTURE BMP Summary Purpose eClinicalWorks Submission
--- OUTSIDE RECORDS SUMMARY | 2018-03-16 12:27 | XMS REPORT ---
Author Author NADIA HSU [facility] Address [address] [place] [address] Care Team Providers Care Grocery Clerk Checking Name Role Phone [facility]IA [facility] Unavailable PROBLEMS Type Condition ICD9-CM Code MGC77-QO Code Onset Dates Condition Status SNOMED Code Problem Chronic kidney disease N18.9 Active 120939049 Problem COPD (chronic obstructive pulmonary disease) J44.9 Active 56558470 Problem Hyperlipidemia E78.5 Active 38179702 Problem Hypertrophy (benign) of prostate with urinary obstruction and other lower urinary tract symptoms [LUTS] 600.01 Active 256207752 Problem Other chronic pain G89.29 Active 93592555 Problem Low back pain M54.5 Active 792456663 Problem BPH NOS w ur obs/LUTS N40.1 Active 149203371 Problem Hypertension I10 Active 45404341 Problem Type 2 diabetes mellitus with diabetic chronic kidney disease E11.22 Active 44976036 Problem Chronic kidney disease, 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 Active 955591060 ALLERGIES No Information ENCOUNTERS Encounter Location Date Diagnosis [place] [id number] [place] [address] Feb, Chronic kidney disease, 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 [place] [id number] [place] [address]- [address] Feb, Low back pain M54.5 ; Other chronic pain G89.29 and Retroperitoneal lymphadenopathy R59.0 [place] [address] [address] December, Medicare annual wellness visit, initial Z00.00 ; Hyperlipidemia E78.5 ; Type 2 diabetes mellitus with diabetic chronic kidney disease E11.22 ; COPD (chronic obstructive pulmonary disease) J44.9 ; Chronic kidney disease, 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 ; Hypertension I10 ; BPH NOS w ur obs/ LUTS N40.1 and History of smoking Z87.891 [facility] [address] [place] [address] 14 Dec, 2017 Medicare annual wellness visit, initial Z00.00 ; Type 2 diabetes mellitus with diabetic chronic kidney disease E11.22 ; COPD (chronic obstructive pulmonary disease) J44.9 ; Chronic kidney disease, 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 ; Hypertension I10 ; Hyperlipidemia E78.5 ; BPH NOS w ur obs/LUTS N40.1 and History of smoking Z87.891 [facility] [address] [address] 20 Oct, 2017 BPH NOS w ur obs/LUTS N40.1 ; COPD (chronic obstructive pulmonary disease) J44.9 ; Hyperlipidemia E78.5 ; Hypertension I10 ; Type 2 diabetes mellitus with diabetic chronic kidney disease E11.22 and Chronic kidney disease, 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 [place] [id number] [address] Oct, Diabetes E11.9 [facility] [address] [place] [address] Mar, COPD (chronic obstructive pulmonary disease) J44.9 [facility] [address] [place] [address] Mar, Hyperlipidemia E78.5 [facility] [address] [place] [address] Feb, [facility] [address] [place] [address]46 Feb, [facility] [address] [place] [address] Feb, Diabetes E11.9 [facility] [address] [place] [address] 25[address] Feb, Diabetes E11.9 [facility] [address] [id number] [address] Feb, Hypertension I10 ; Diabetes E11.9 and COPD (chronic obstructive pulmonary disease) J44.9 [facility] [id number] [place] [address]- 30[address] Aug, Diabetes E11.9 and Hypertension I10 [facility] [id number] [place] [address]- [address] May, [facility] [address] [address]- [address] Apr, Hyperlipidemia E78.5 [facility] [address] [address] Apr, Diabetes E11.9 and Hyperlipidemia E78.5 [facility] [id number] [place] [address]- 9[address] Jan, Chronic kidney disease N18.9 [place] [id number] [place] [address]- 2[address] Sep, Diabetes E11.9 ; Hypertension I10 ; Hyperlipidemia E78.5 and COPD (chronic obstructive pulmonary disease) J44.9 [place] [id number] [place] [address]- [address] May, [facility] [id number] [place] [address]- 7205 May, Altered metabolism due to diabetes E11.9 [facility] [id number] [place] [address]- 7633 May, Chronic kidney disease N18.9 [facility] [id number] [place] [address]87- 2902 May, Chronic kidney disease N18.9 and Back pain M54.9 [facility] [id number] [place] [address]- 5172 Apr, Abdominal pain 789.00 [place] [address] [address] Apr, Other and unspecified hyperlipidemia 272.4 [facility] [address] [address] Apr, Diabetes mellitus without mention of complication, type II or unspecified type, not stated as uncontrolled 250.00 [facility] [address], [place] [address] Mar, Diabetes mellitus without mention of complication, type II or unspecified type, not stated as uncontrolled 250.00 [facility] [id number] [place] [address] 460485- 6635 Feb, Diabetes mellitus without mention of complication, type II or unspecified type, uncontrolled 250.02 ; Diabetes mellitus without mention of complication, type II or unspecified type, not stated as uncontrolled 250.00 and Acute sinusitis 461.9 [facility] [address], [place] [address] Nov, [facility] [id number] [place] [address]- 2007 Nov, [facility] [address], [place] [address] 47[address] Sep, [facility] [address] [place] [address] 12536- 0395 Sep, [facility] [address], [place] [address] 6[address] Jul, [facility] [address] Jul, [facility] [address] Jul, [facility] [id number] [place] [address] 326047- 0666 Jul, [facility] [address] [address] Jul, [facility] [id number] [place] [address], [place] [address]- [address] Jul, [facility] [place] [facility] [address] [id number] [place] [address]- 5[address] Jun, [facility] [place] [facility] [address] [id number] [place] [address]- 2046 Jun, [facility] [place] [facility] [address] [id number] [place] [address]- 0780 May, [facility] [place] [facility] [address] [id number] [place] [address]- 8612 May, [facility] [place] [facility] [address] [id number] [place] [address] May, [facility] [place] [facility] [address] [id number] [place] [address]- [address] May, [facility] [place] [facility] [address] [id number] [place] [address]- 8856 Mar, [facility] [place] [facility] [address] [id number] [place] [address]- 4724 Mar, [facility] [place] [facility] [address] [id number] [place] [address]- 3334 December, [facility] [place] [facility] [address] [facility] [id number] [place] [address]- 4200 December, [facility] [place] [facility] [address] [id number] [place] [address]- 5008 Nov, [facility] [place] [facility] [address] [id number] [place] [address]- 3406 Nov, [facility] [place] [facility] [address] [id number] [place] [address]- 5453 Nov, [facility] [place] [facility] [address] [id number] [place] [address]- 1731 Nov, [facility] [place] [facility] [address] [id number] [place] [address]- 2759 Nov, [facility] [place] [facility] [address] [id number] [place] [address]- 8769 Nov, [facility] [place] [facility] [address] [id number] [place] [address]- 0650 Nov, [facility] [place] [facility] [address] [id number] [place] [address]- 1630 Nov, [facility] [place] [facility] [address] [id number] [place] [address]- 2526 Nov, [facility] [place] [facility] [address] [id number] [place] [address]- 8931 Nov, [facility] [place] [facility] [address] [id number] [place] [address]- 3030 Oct, [facility] [place] [facility] [address] [id number] [place] [address]- 6109 Oct, [facility] [place] [facility] [address] [id number] [place] [address]- [address] Oct, [facility] [place] [facility] [address] [id number] [place] [address]- 8027 Oct, [facility] [place] [facility] [address] [id number] [place] [address]- 9061 Sep, [facility] [place] [facility] [address] [id number] [place] [address]- 1421 Sep, [facility] [place] [facility] [address] [id number] [place] [address]- 4044 Aug, [facility] [place] [facility] [address] [id number] [place] [address]- 6246 Aug, [facility] [place] [facility] [address] [id number] [place] [address]- 0648 Aug, [facility] [place] [facility] [address] [id number] [place] [address]- 7821 Aug, [facility] [place] [facility] [address] [id number] [place] [address]- 2546 Jun, [facility] [address] [id number] [place] [address]- 2921 Jun, [facility] [place] [facility] [address] [id number] [place] [address]- 8291 Mar, [facility] [place] [facility] [address] [id number] [place] [address]- 1797 Feb, [facility] [place] [facility] [address] [id number] [place] [address]- 5355 Feb, [facility] [place] [facility] [address] [id number] [place] [address]- 5484 Feb, [facility] [place] [facility] [address] [id number] [place] [address]- 9014 Feb, [facility] [place] [facility] [address] [id number] [place] [address]- 7721 Jan, [facility] [place] [facility] [address] [id number] [place] [address]- 7528 Oct, [facility] [place] [facility] [address] [id number] [place] [address]- 1254 Sep, [facility] [place] [facility] [address] [id number] [place] [address]- 0936 Sep, [facility] [place] [facility] [address] [id number] [place] [address]- 6293 Aug, [facility] [place] [facility] [address] [id number] [place] [address]- 6281 Aug, [facility] [place] [facility] [address] [id number] [place] [address]- 3966 Jun, [facility] [place] [facility] [address] [id number] [place] [address] Jun, [facility] [place] [facility] [address] [id number] [place] [address] Jun, [facility] [place] [facility] [address] [id number], [place] [address]- 98[address] Jun, [facility] [id number] [address]- [address] Apr, [facility] [address], [place] [address]- 2546 December, [facility] [id number] [place] [address]- 8116 Sep, [facility] [address], [place] [address]- 3146 Sep, [facility] [address], [place] [address]- 2926 Sep, [facility] [address], [place] [address]- 8656 Aug, [facility] [address], [place] [address]- 5036 Aug, [facility] [id number] [place] [address]- 8838 Aug, IMMUNIZATIONS No Known Immunizations SOCIAL HISTORY Never Assessed REASON FOR VISIT 90 day supplies PLAN OF CARE VITAL SIGNS MEDICATIONS Medication Instructions Dosage Frequency Start Date End Date Duration Status Trulicity 1.5 MG/0.5ML Subcutaneous once weekly 0.5 ml Apr, Oct, 90 days Active RESULTS No Results PROCEDURES No Known procedures INSTRUCTIONS MEDICATIONS ADMINISTERED No Known Medications MEDICAL (GENERAL) HISTORY Type Description Date Medical History Type II diabetic Medical History hypertension Surgical History colon surgery Surgical History scar tissue removal Surgical History bilateral cataract surgeries Hospitalization History surgery Hospitalization History [facility] ER - Back pain
--- OUTSIDE RECORDS SUMMARY | 2018-03-16 12:27 | XMS REPORT ---
Author Author NADIA HSU [facility] Address [address] [place] [address] Care Team Providers Care Supervisor Salvage Name Role Phone NADIA HSU Unavailable PROBLEMS Type Condition ICD9-CM Code [id number] Code Onset Dates Condition Status SNOMED Code Problem Hypertrophy (benign) of prostate with urinary obstruction and other lower urinary tract symptoms [LUTS] 600.01 Active 196896030 Problem Hyperlipidemia E78.5 Active 18069112 Problem Chronic kidney disease N18.9 Active 646482746 Problem Type 2 diabetes mellitus with diabetic chronic kidney disease E11.22 Active 57183409 Problem Chronic kidney disease, 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 Active 421324152 Problem Diabetes E11.9 Active 24615034 Problem COPD (chronic obstructive pulmonary disease) J44.9 Active 71644562 Problem BPH NOS w ur obs/LUTS N40.1 Active 730085024 Problem Hypertension I10 Active 04601560 ALLERGIES No Information ENCOUNTERS Encounter Location Date Diagnosis [facility] [id number] [place] [address] Oct, BPH NOS w ur obs/LUTS N40.1 ; COPD (chronic obstructive pulmonary disease) J44.9 ; Hyperlipidemia E78.5 ; Hypertension I10 ; Type 2 diabetes mellitus with diabetic chronic kidney disease E11.22 and Chronic kidney disease, 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 [facility] [address] [address] Oct, Diabetes E11.9 [facility] [id number] [place] [address]- 1506 Mar, COPD (chronic obstructive pulmonary disease) J44.9 [facility] [id number] [place] [address]- 1371 Mar, Hyperlipidemia E78.5 [facility] [address] [address] Feb, [facility] [address] [address] Feb, [facility] [address] [address] Feb, Diabetes E11.9 [facility] [address] [address] Feb, Diabetes E11.9 [facility] [address] [address] Feb, Hypertension I10 ; Diabetes E11.9 and COPD (chronic obstructive pulmonary disease) J44.9 [facility] [address] [address] Aug, Diabetes E11.9 and Hypertension I10 [facility] [address] [address] May, [facility] [address] [address] 6[address] Apr, Hyperlipidemia E78.5 [facility] [address] [address] 40[address] Apr, Diabetes E11.9 and Hyperlipidemia E78.5 [facility] [address] [address] Jan, Chronic kidney disease N18.9 [facility] [id number] [address] Sep, Diabetes E11.9 ; Hypertension I10 ; Hyperlipidemia E78.5 and COPD (chronic obstructive pulmonary disease) J44.9 [facility] [address] [address] May, [facility] [address] [address] May, Altered metabolism due to diabetes E11.9 [place] [address] [address] May, Chronic kidney disease N18.9 [facility] [id number] [place] [address] [id number]- 9772 May, Chronic kidney disease N18.9 and Back pain M54.9 [facility] [id number] [place] [address]- 2008 Apr, Abdominal pain 789.00 [facility] [id number] [place] [address] 40[address]- 8007 Apr, Other and unspecified hyperlipidemia 272.4 [facility] [id number] [place] [address] 57[address]- 1177 Apr, Diabetes mellitus without mention of complication, type II or unspecified type, not stated as uncontrolled 250.00 [facility] [id number] [place] [address] 64[address]- 5561 Mar, Diabetes mellitus without mention of complication, type II or unspecified type, not stated as uncontrolled 250.00 [facility] [id number] [place] [address] 58064- 9508 Feb, Diabetes mellitus without mention of complication, type II or unspecified type, uncontrolled 250.02 ; Diabetes mellitus without mention of complication, type II or unspecified type, not stated as uncontrolled 250.00 and Acute sinusitis 461.9 [place] [id number] [place] [address] 85134- 4415 Nov, [place] [place] [id number] [place] [address] 04955- 4338 Nov, [facility] [id number] [place] [address] 869210- 4368 Sep, [facility] [place] [address] [place] [address] [id number]- 1284 Sep, [facility] [id number] [place] [address] [place] [address] Jul, [facility] [place] [facility] [address] [id number] [place] [address] Jul, [facility] [place] [facility] [address] [id number] [place] [address] Jul, [facility] [place] [facility] [address] [id number] [place] [address]- 7791 Jul, [facility] [place] [facility] [address] [id number] [place] [address]- 8685 Jul, [facility] [place] [facility] [address] [id number] [place] [address] Jul, [facility] [place] [facility] [address] [id number] [place] [address]- 0127 Jun, [facility] [place] [facility] [address] [id number] [place] [address]- 9495 Jun, [facility] [place] [facility] [address] [id number] [place] [address]- 4061 May, [facility] [place] [facility] [address] [id number] [place] [address]- 6979 May, [facility] [place] [facility] [address] [id number] [place] [address]- 7617 May, [facility] [place] [facility] [address] [id number] [place] [address]- 3400 May, [facility] [place] [facility] [address] [id number] [address] 7[address] Mar, [facility] [place] [facility] [address] [id number] [place] [address]- 5482 Mar, [facility] [place] [facility] [address] [id number] [place] [address]- 6401 December, [facility] [place] [facility] [address] [id number] [place] [address]- 5483 December, [facility] [place] [facility] [address] [id number] [place] [address]- 7722 08 Nov, 2013 [facility] [place] [facility] [address] [id number] [place] [address]- 4070 Nov, [facility] [place] [facility] [address] [id number] [place] [address]- 7446 Nov, [facility] [place] [facility] [address] [id number] [place] [address]- 3854 Nov, [facility] [place] [facility] [address] [id number] [place] [address]- 5980 Nov, [facility] [place] [facility] [address] [id number] [place] [address]- 0364 Nov, [facility] [place] [facility] [address] [id number] [place] [address]- 2854 Nov, [facility] [place] [facility] [address] [id number] [place] [address]- 4335 Nov, [facility] [place] [facility] [address] [id number] [place] [address]- 8009 Nov, [facility] [place] [facility] [address] [id number] [place] [address]- 1293 Nov, [facility] [place] [facility] [address] [id number] [place] [address]- 7381 Oct, [facility] [place] [facility] [address] [id number] [place] [address]- 6761 Oct, [facility] [place] [facility] [address] [id number] [place] [address]- 1819 Oct, [facility] [place] [facility] [address] [id number] [place] [address]- 2245 Oct, [facility] [place] [facility] [address] [id number] [place] [address]- 9628 Sep, [facility] [place] [facility] [address] [id number] [place] [address]- 3790 Sep, [facility] [place] [facility] [address] [id number] [place] [address]- 9557 Aug, [facility] [place] [facility] [address] [id number] [place] [address]- 5902 Aug, [facility] [place] [facility] [address] [id number] [place] [address]- 1101 Aug, [facility] [place] [facility] [address] [id number] [place] [address]- 5487 Aug, [facility] [place] [facility] [address] [id number] [place] [address]- 6386 Jun, [facility] [place] [facility] [address] [id number] [place] [address]- 2211 Jun, [facility] [place] [facility] [address] [id number] [place] [address]- 5568 Mar, [facility] [place] [facility] [address] [id number] [place] [address]- 5172 Feb, [facility] [place] [facility] [address] [id number] [place] [address]- 2705 Feb, [facility] [place] [facility] [address] [id number] [place] [address]- 8265 Feb, [facility] [place] [facility] [address] [id number] [place] [address]- 7490 Feb, [facility] [place] [facility] [address] [id number] [place] [address]- 6210 Jan, [facility] [place] [facility] [address] [id number] [place] [address]- 7921 Oct, [facility] [place] [facility] [address] [id number] [place] [address]- 0663 Sep, [facility] [place] [facility] [address] [id number] [place] [address]- 2030 Sep, [facility] [place] [facility] [address] [address]- 8186 Aug, [facility] [address] [address]- 1466 Aug, [facility] [address] [address]- 4336 Jun, [facility] [address] [address]- 1276 Jun, [facility] [address] [address]- 0090 Jun, [facility] [id number] [place] [address]- 1926 Jun, [facility] [address] [address]- 1651 Apr, [facility] [id number] [place] [address]31- 0016 December, [facility] [address] [address]- 3621 Sep, [facility] [address] [address]- 4613 Sep, [facility] [address] [address]- 8186 Sep, [facility] [address] [address]- 9609 Aug, [facility] [address] [address]- 8975 Aug, [facility] [address] [address] Aug, IMMUNIZATIONS No Known Immunizations SOCIAL HISTORY Never Assessed REASON FOR VISIT PLAN OF CARE VITAL SIGNS MEDICATIONS Medication Instructions Dosage Frequency Start Date End Date Duration Status Trulicity 1.5 MG/0.5ML Subcutaneous once weekly 0.5 ml Apr, Active RESULTS No Results PROCEDURES No Known procedures INSTRUCTIONS MEDICATIONS ADMINISTERED No Known Medications MEDICAL (GENERAL) HISTORY Type Description Date Medical History Type II diabetic Medical History hypertension Surgical History colon surgery Surgical History scar tissue removal Surgical History bilateral cataract surgeries Hospitalization History surgery
--- OUTSIDE RECORDS SUMMARY | 2018-03-16 12:27 | XMS REPORT ---
Author Author NADIA HSU Organization [facility] Address [address] [place] [address] Care Team Providers Care Household Appliance Installer Name Role Phone NADIA HSU Unavailable PROBLEMS Type Condition ICD9-CM Code [id number] Code Onset Dates Condition Status SNOMED Code Problem Hypertension I10 Active 56495843 Problem Diabetes E11.9 Active 01723496 Problem Chronic kidney disease N18.9 Active 099523690 Problem Hypertrophy (benign) of prostate with urinary obstruction and other lower urinary tract symptoms [LUTS] 600.01 Active 454307288 Problem COPD (chronic obstructive pulmonary disease) J44.9 Active 12098951 Problem Hyperlipidemia E78.5 Active 95404472 ALLERGIES Substance Reaction Event Type Date Status Morphine Unknown Drug Allergy Aug, Active SOCIAL HISTORY No smoking Hx information available PLAN OF CARE Activity Details Follow Up 3 Months Reason: VITAL SIGNS Height 70 in 2016-09-23 Weight 205.3 lbs 2016-09-23 Temperature 97.8 degrees Fahrenheit 2016-09-23 Heart Rate 80 bpm 2016-09-23 Respiratory Rate 24 2016-09-23 BMI 29.45 kg/m2 2016-09-23 Blood pressure systolic 162 mmHg 2016-09-23 Blood pressure diastolic 82 mmHg 2016-09-23 MEDICATIONS Medication Instructions Dosage Frequency Start Date End Date Duration Status Finasteride 5MG Orally Once a day 1 tablet 24h Active Lipitor 10 MG Orally Once a day 1 tablet 24h Apr, Active Trulicity 1.5 MG/0.5ML Subcutaneous once weekly 0.5 ml Apr, Active Lisinopril 20MG TAKE ONE TABLET BY MOUTH ONCE DAILY, NEED FOLLOW UP APPT Active GlipiZIDE 5MG TAKE ONE TABLET BY MOUTH ONCE DAILY 24h Active Metformin HCl 1000MG TAKE ONE TABLET BY MOUTH TWICE DAILY 45 Active Hydrochlorothiazide 25 MG Orally Once a day 1 tablet 24h Aug, Active RESULTS Name Result Date Reference Range A1C (IN HOUSE) A1C IN HOUSE 11 4.3 - 5.6 % Previous A1c 10.1 Lot [id number] Exp date 05/2018 PROCEDURES Procedure Date Ordered Related Diagnosis Body Site GLYCATED HEMOGLOBIN TEST Sep 23, 2016 [facility] VISIT ESTABLISHED PATIENT Sep 23, 2016 Office Visit, Est Pt., Level 3 Sep 23, 2016 IMMUNIZATIONS No Known Immunizations
--- OUTSIDE RECORDS SUMMARY | 2018-03-16 12:28 | XMS REPORT ---
Author Author NADIA HSU [facility] Address [address] [place] [address] Care Team Providers Care Senior Sql D[employer] Name Role Phone NADIA HSU Unavailable PROBLEMS Type Condition ICD9-CM Code YDG22-EX Code Onset Dates Condition Status SNOMED Code Problem Hypertrophy (benign) of prostate with urinary obstruction and other lower urinary tract symptoms [LUTS] 600.01 Active 669045698 Problem Hyperlipidemia E78.5 Active 91541402 Problem Chronic kidney disease N18.9 Active 042597622 Problem Type 2 diabetes mellitus with diabetic chronic kidney disease E11.22 Active 28374089 Problem Chronic kidney disease, 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 Active 235108271 Problem Diabetes E11.9 Active 85783968 Problem COPD (chronic obstructive pulmonary disease) J44.9 Active 34875078 Problem BPH NOS w ur obs/LUTS N40.1 Active 113716575 Problem Hypertension I10 Active 86508130 ALLERGIES No Information ENCOUNTERS Encounter Location Date Diagnosis [facility] [id number] [place] [address] Oct, BPH NOS w ur obs/LUTS N40.1 ; COPD (chronic obstructive pulmonary disease) J44.9 ; Hyperlipidemia E78.5 ; Hypertension I10 ; Type 2 diabetes mellitus with diabetic chronic kidney disease E11.22 and Chronic kidney disease, 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 [facility] [address] [address] Oct, Diabetes E11.9 [facility] [id number] [place] [address]- 2612 Mar, COPD (chronic obstructive pulmonary disease) J44.9 [facility] [id number] [place] [address]- 9436 Mar, Hyperlipidemia E78.5 [facility] [address] [address] Feb, [facility] [address] [address] Feb, [facility] [address] [address] Feb, Diabetes E11.9 [facility] [address] [address] Feb, Diabetes E11.9 [facility] [address] [address] Feb, Hypertension I10 ; Diabetes E11.9 and COPD (chronic obstructive pulmonary disease) J44.9 [facility] [address] [address] Aug, Diabetes E11.9 and Hypertension I10 [facility] [address] [address] May, [facility] [address] [address] 99[address] Apr, Hyperlipidemia E78.5 [facility] [address] [address] Apr, Diabetes E11.9 and Hyperlipidemia E78.5 [facility] [address] [address] Jan, Chronic kidney disease N18.9 [facility] [id number] [address] Sep, Diabetes E11.9 ; Hypertension I10 ; Hyperlipidemia E78.5 and COPD (chronic obstructive pulmonary disease) J44.9 [facility] [address] [address] May, [facility] [address] [address] May, Altered metabolism due to diabetes E11.9 [place] [address] [address] May, Chronic kidney disease N18.9 [place] [id number] [place] [id number]- 5579 May, Chronic kidney disease N18.9 and Back pain M54.9 [place] [id number] [place] [address]- 8242 Apr, Abdominal pain 789.00 [place] [id number] [place] [address]- 5422 Apr, Other and unspecified hyperlipidemia 272.4 [place] [id number] [place] [address]98- 9149 Apr, Diabetes mellitus without mention of complication, type II or unspecified type, not stated as uncontrolled 250.00 [place] [id number] [place] [address]- 7923 Mar, Diabetes mellitus without mention of complication, type II or unspecified type, not stated as uncontrolled 250.00 [place] [id number] [place] [address]2468- 8756 Feb, Diabetes mellitus without mention of complication, type II or unspecified type, uncontrolled 250.02 ; Diabetes mellitus without mention of complication, type II or unspecified type, not stated as uncontrolled 250.00 and Acute sinusitis 461.9 [place] [id number] [place] [address]- 5513 Nov, [place] [id number] [place] [address]- 9810 Nov, [place] [id number] [place] [address] 063864- 4217 Sep, [place] [id number] [place] [address] [id number]- 3058 Sep, [place] [id number] [place] [address] [place] [address]- [address] Jul, [facility] [place] [facility] [address] [id number] [place] [address] Jul, [facility] [place] [facility] [address] [id number] [place] [address] Jul, [facility] [place] [facility] [address] [id number] [place] [address]- 3905 Jul, [facility] [place] [facility] [address] [id number] [place] [address]- 0120 Jul, [facility] [place] [facility] [address] [id number] [place] [address] Jul, [facility] [place] [facility] [address] [id number] [place] [address]- 5004 Jun, [facility] [place] [facility] [address] [id number] [place] [address]- 6950 Jun, [facility] [place] [facility] [address] [id number] [place] [address]- 0160 May, [facility] [place] [facility] [address] [id number] [place] [address]- 9255 May, [facility] [place] [facility] [address] [id number] [place] [address]- 9359 May, [facility] [place] [facility] [address] [id number] [place] [address]- 3021 May, [facility] [place] [facility] [address] [id number] [address] 3602 Mar, [facility] [place] [facility] [address] [id number] [place] [address]- 7121 Mar, [facility] [place] [facility] [address] [id number] [place] [address]- 4532 December, [facility] [place] [facility] [address] [id number] [place] [address]- 2812 December, [facility] [place] [facility] [address] [id number] [place] [address]- 9048 08 Nov, 2013 [facility] [place] [facility] [address] [id number] [place] [address]- 8708 Nov, [facility] [place] [facility] [address] [id number] [place] [address]- 2116 Nov, [facility] [place] [facility] [address] [id number] [place] [address]- 9726 Nov, [facility] [place] [facility] [address] [id number] [place] [address]- 8469 Nov, [facility] [place] [facility] [address] [id number] [place] [address]- 5462 Nov, [facility] [place] [facility] [address] [id number] [place] [address]- 5030 Nov, [facility] [place] [facility] [address] [id number] [place] [address]- 4395 Nov, [facility] [place] [facility] [address] [id number] [place] [address]- 0310 Nov, [facility] [place] [facility] [address] [id number] [place] [address]- 4292 Nov, [facility] [place] [facility] [address] [id number] [place] [address]- 9604 Oct, [facility] [place] [facility] [address] [id number] [place] [address]- 6151 Oct, [facility] [place] [facility] [address] [id number] [place] [address]- 3326 Oct, [facility] [place] [facility] [address] [id number] [place] [address]- 9235 Oct, [facility] [place] [facility] [address] [id number] [place] [address]- 7354 Sep, [facility] [place] [facility] [address] [id number] [place] [address]- 6027 Sep, [facility] [place] [facility] [address] [id number] [place] [address]- 3912 Aug, [facility] [place] [facility] [address] [id number] [place] [address]- 5271 Aug, [facility] [place] [facility] [address] [id number] [place] [address]- 2555 Aug, [facility] [place] [facility] [address] [id number] [place] [address]- 6740 Aug, [facility] [place] [facility] [address] [id number] [place] [address]- 9081 Jun, [facility] [place] [facility] [address] [id number] [place] [address]- 0715 Jun, [facility] [place] [facility] [address] [id number] [place] [address]- 4930 Mar, [facility] [place] [facility] [address] [id number] [place] [address]- 7222 Feb, [facility] [place] [facility] [address] [id number] [place] [address]- 1931 Feb, [facility] [place] [facility] [address] [id number] [place] [address]- 1925 Feb, [facility] [place] [facility] [address] [id number] [place] [address]- 9343 Feb, [facility] [place] [facility] [address] [id number] [place] [address]- 5855 Jan, [facility] [place] [facility] [address] [id number] [place] [address]- 4080 Oct, [facility] [place] [facility] [address] [id number] [place] [address]- 7243 Sep, [facility] [place] [facility] [address] [id number] [place] [address]- 3580 Sep, [facility] [place] [facility] [address] [place] [address]- 4156 Aug, [facility] [address] [place] [address]- 6408 Aug, [facility] [address] [address] Jun, [facility] [address] [place] [address]- 1574 Jun, [facility] [address] [place] [address]- 8269 Jun, [facility] [id number] [place] [address]- 5821 Jun, [facility] [address] [address] Apr, [facility] [id number] [place] [address] 81842- 1057 December, [facility] [address] [place] [address]- 4654 Sep, [facility] [address] [place] [address]- 2605 Sep, [facility] [address] [address] Sep, [facility] [address] [place] [address]- 0711 Aug, [facility] [address], [place] [address]- 7579 Aug, [facility] [address] [address] Aug, IMMUNIZATIONS No Known Immunizations SOCIAL HISTORY [...]
[2018-03-16] MEDS ORDERED: LACTATED RINGERS 1,000 ML IV STA (12:38)
[2018-03-16] MEDS ORDERED: LACTATED RINGERS 1,000 ML IV ONE (12:40)
[2018-03-16] MEDS ORDERED: FAMOTIDINE 20MG/2ML IV (PEPCID) ONE (13:42)
[2018-03-16 13:45] VITALS: BP 148/75
[2018-03-16] MEDS ORDERED: FAMOTIDINE 20MG/2ML IV (PEPCID) IVP ONE (14:00)
--- NOTE | 2018-03-16 15:08 | Progress Note-Pre Operative ---
Pre-Operative Progress Note H&P Reviewed The H&P was reviewed, patient examined and no changes noted. Date Seen by Provider: Mar 16, 2018 Time Seen by Provider: 15:07 Date H&P Reviewed: Mar 16, 2018 Time H&P Reviewed: 15:07 Pre-Operative Diagnosis: ascending colon mass, blood in stool JULIO CESAR LICEA DO Mar 16, 2018 15:08
[2018-03-16] MEDS ORDERED: PROPOFOL INJECTION 50 ML IV ONE (15:50)
[2018-03-16 17:05] VITALS: BP 131/74
--- NOTE | 2018-03-16 17:12 | Anesthesia-General Post-Op ---
MAC Patient Condition Mental Status/LOC: Same as Preop Cardiovascular: Satisfactory Nausea/Vomiting: Absent Respiratory: Satisfactory Pain: Controlled Complications: Absent Post Op Complications Complications None Follow Up Care/Instructions Patient Instructions None needed. Anesthesiology Discharge Order Discharge Order Patient is doing well, no complaints, stable vital signs, no apparent adverse anesthesia problems. No complications reported per nursing. MISHA PALMER CRNA Mar 16, 2018 17:12
[2018-03-16 17:19] VITALS: BP 154/78
[2018-03-16 17:21] VITALS: BP 154/78
--- NOTE | 2018-03-16 18:30 | Progress Note-Post Operative ---
Post-Operative Progess Note Surgeon (s)/Brusher Machine (s) Surgeon JULIO CESAR LICEA DO Brusher Machine: na Pre-Operative Diagnosis ascending colon mass, blood in stool Post-Operative Diagnosis ascending colon mass Procedure & Operative Findings Date of Procedure 03/16/18 Procedure Performed/Findings colonoscopy with biopsies of ascending colon mass aleksandra inking of mass and previous anastomosis Anesthesia Type per php mysql developer Estimated Blood Loss Estimated blood loss (mL): scant Specimens/Packing Specimens Removed ascending colon mass JULIO CESAR LICEA DO Mar 16, 2018 18:30
--- NOTE | 2018-03-16 22:18 | OPERATIVE REPORT ---
DATE OF SERVICE: 03/16/2018 PREOPERATIVE DIAGNOSIS: Ascending colon mass and blood in stool. POSTOPERATIVE DIAGNOSIS: Ascending colon mass. PROCEDURE: Colonoscopy with biopsies of the ascending colon mass and the inking distal to the mass and inking at the previous anastomosis. SURGEON: Julio Cesar Fontanez DO ANESTHESIA: Per HISTOLOGIST. ESTIMATED BLOOD LOSS: Scant. COMPLICATIONS: None. INDICATIONS: The patient is a 72-year-old male who is having bleeding in the stools. CT scan suggesting an ascending colon mass. He was explained risks and benefits of procedure and wished to proceed with procedure. Consent was signed on the chart. DESCRIPTION OF PROCEDURE: The patient was taken to the endoscopy suite, placed in left lateral recumbent position. Timeout was performed. Digital rectal exam was performed. There were no palpable polyps, masses or ulcerations. Scope was inserted in the rectum and advanced all the way to the cecum. There were no polyps, masses or ulcerations within the cecum. Just distal to the cecum, there is a large mass that occupies approximately 80% of the diameter of the colon. Biopsies were obtained. The scope was slowly retracted just proximally and Tamie ink was used to araseli just distal to the mass in three different locations using a total of 3 mL. Scope was continued to be slowly retracted back. There were no other polyps, masses or ulcerations within the remainder of the ascending colon and the transverse colon. Then, the anastomosis was visualized from previous; it was approximately 3 to 4 cm in diameter. It does appear to be maybe slightly strictured. Otherwise, no other pathology noted. This was then inked with 2 mL total of Tamie ink. Scope was continued to be slowly retracted. There were no other polyps, masses or ulcerations within the remainder of the colon. Once in the rectum, it was also retroflexed noting no other pathology. Scope was returned to its normal position, slowly withdrawn until completely removed. RECOMMENDATIONS: We will follow up on biopsies and will discuss further options once pathology is completed. If he has any problems prior to that, he should be reevaluated at that time. Job ID: [id number] DocumentID: [id number] Dictated Date: 03/16/2018 18:35:56 Physical Therapy Coordinator Date: 03/16/2018 22:17:25 Dictated By: JULIO CESAR FONTANEZ DO [facility]rick
== END 2018-03-16 17:25 | disposition home or self-care (01) ==
LOC: ENDO 12:21
PROVIDERS: ATTEND Surgery
DX: D12.2 Benign neoplasm of ascending colon (principal); I10 Essential (primary) hypertension; J44.9 Chronic obstructive pulmonary disease, unspecified; E11.42 Type 2 diabetes mellitus with diabetic polyneuropathy; Z85.038 Personal history of other malignant neoplasm of large intestine; Z79.84 Long term (current) use of oral hypoglycemic drugs; Z87.891 Personal history of nicotine dependence

== ENCOUNTER 2018-04-06 12:41 | Outpatient (CLI) | payer MEDICARE ==
[~2018-04-06] VITALS: Ht 177.8 cm; Wt 88.2 kg
[2018-04-06 12:59] VITALS: BP 137/77
[2018-04-06] MEDS ORDERED: LISI-552 PO (13:05)
[2018-04-06 13:40] LABS: BASOPHILS # (AUTO) 0.1 10^3/uL (0.0-0.1); BASOPHILS % (AUTO) 1 % (0-10); EOSINOPHILS # (AUTO) 0.2 10^3/uL (0.0-0.3); EOSINOPHILS % (AUTO) 2 % (0-10); HEMATOCRIT 33 % (40-54); HEMOGLOBIN 10.7 G/DL (13.3-17.7); LYMPHOCYTES # (AUTO) 1.3 X 10^3 (1.0-4.0); LYMPHOCYTES % (AUTO) 12 % (12-44); MEAN CORPUSCULAR HEMOGLOBIN 24 PG (25-34); MEAN CORPUSCULAR HGB CONC 33 G/DL (32-36); MEAN CORPUSCULAR VOLUME 72 FL (80-99); MEAN PLATELET VOLUME 10.8 FL (7.4-10.4); MONOCYTES # (AUTO) 1.1 X 10^3 (0.0-1.0); MONOCYTES % (AUTO) 11 % (0-12); NEUTROPHILS # (AUTO) 7.6 X 10^3 (1.8-7.8); NEUTROPHILS % (AUTO) 74 % (42-75); PLATELET COUNT 298 10^3/uL (130-400); RED BLOOD COUNT 4.56 10^6/uL (4.35-5.85); RED CELL DISTRIBUTION WIDTH 14.9 % (10.0-14.5); WHITE BLOOD COUNT 10.3 10^3/uL (4.3-11.0)
[2018-04-06 13:59] LABS: CALCIUM 9.5 MG/DL (8.5-10.1); CREATININE SERUM 1.43 MG/DL (0.60-1.30); POTASSIUM 4.4 MMOL/L (3.6-5.0)
== END 2018-04-06 13:25 | disposition home or self-care (01) ==
LOC: PREOP 12:41
PROVIDERS: ATTEND Surgery
DX: Z01.812 Encounter for preprocedural laboratory examination (principal); Z11.2 Encounter for screening for other bacterial diseases; K63.9 Disease of intestine, unspecified
CPT/HCPCS: 36415; 80048; 85025; 87081

== ENCOUNTER 2018-04-06 19:58 | Emergency (ER) | payer MEDICARE ==
[~2018-04-06] VITALS: Ht 175.3 cm; Wt 88.0 kg
[~2018-04-06 19:58] MED LIST changes: +LISI-552 PO
--- OUTSIDE RECORDS SUMMARY | 2018-04-06 20:35 | XMS REPORT ---
Author Author NADIA HSU [facility] Address [address] [place] [address] Care Team Providers Care Welfare Project Manager Name Role Phone NADIA HSU Unavailable PROBLEMS Type Condition ICD9-CM Code OOV29-SH Code Onset Dates Condition Status SNOMED Code Problem Chronic kidney disease N18.9 Active 547590215 Problem COPD (chronic obstructive pulmonary disease) J44.9 Active 66256297 Problem Hyperlipidemia E78.5 Active 03236196 Problem Hypertrophy (benign) of prostate with urinary obstruction and other lower urinary tract symptoms [LUTS] 600.01 Active 616612640 Problem Other chronic pain G89.29 Active 75662377 Problem Low back pain M54.5 Active 206756129 Problem BPH NOS w ur obs/LUTS N40.1 Active 450393187 Problem Hypertension I10 Active 80177674 Problem Type 2 diabetes mellitus with diabetic chronic kidney disease E11.22 Active 09727623 Problem Chronic kidney disease, 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 Active 615750028 ALLERGIES Substance Reaction Event Type Date Status Morphine Unknown Drug Allergy December, Active ENCOUNTERS Encounter Location Date Diagnosis [facility] [id number] [place] [address] 13608- 4982 Feb, Colonic mass K63.9 [facility] [id number] [place] [address] 29377- 7640 Feb, [facility] [id number] [place] [address] 80083- 2289 Feb, Chronic kidney disease, 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 [facility] [id number] [place] [address] 13655- 1069 Feb, Low back pain M54.5 ; Other chronic pain G89.29 and Retroperitoneal lymphadenopathy R59.0 [facility] [address] [place] [address] 16 Dec, 2017 Medicare annual wellness visit, initial Z00.00 ; Hyperlipidemia E78.5 ; Type 2 diabetes mellitus with diabetic chronic kidney disease E11.22 ; COPD (chronic obstructive pulmonary disease) J44.9 ; Chronic kidney disease, 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 ; Hypertension I10 ; BPH NOS w ur obs/ LUTS N40.1 and History of smoking Z87.891 [facility] [id number] [place] [address] 71638- 3130 14 Dec, 2017 Medicare annual wellness visit, initial Z00.00 ; Type 2 diabetes mellitus with diabetic chronic kidney disease E11.22 ; COPD (chronic obstructive pulmonary disease) J44.9 ; Chronic kidney disease, 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 ; Hypertension I10 ; Hyperlipidemia E78.5 ; BPH NOS w ur obs/LUTS N40.1 and History of smoking Z87.891 [facility] [id number] [place] [address] 47350- 0694 Oct, BPH NOS w ur obs/LUTS N40.1 ; COPD (chronic obstructive pulmonary disease) J44.9 ; Hyperlipidemia E78.5 ; Hypertension I10 ; Type 2 diabetes mellitus with diabetic chronic kidney disease E11.22 and Chronic kidney disease, 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 [facility] [address], [place] [address] 2446 Oct, Diabetes E11.9 [facility] [id number] [place] [address] 38323- 1724 Mar, COPD (chronic obstructive pulmonary disease) J44.9 [facility] [address], [place] [address] 6277 Mar, Hyperlipidemia E78.5 [facility] [id number] [place] [address] 35231- 5525 Feb, [facility] [id number] [place] [address] 54833- 0507 Feb, [facility] [id number] [address] 6970 Feb, Diabetes E11.9 [facility] [id number] [place] [address] 89134- 2705 Feb, Diabetes E11.9 [facility] [id number] [place] [address] 34989- 0577 Feb, Hypertension I10 ; Diabetes E11.9 and COPD (chronic obstructive pulmonary disease) J44.9 [facility] [id number] [place] [address] 27433- 9051 Aug, Diabetes E11.9 and Hypertension I10 [facility] [id number] [place] [address] 72167- 1036 May, [facility] [id number] [place] [address] 86390- 8515 Apr, Hyperlipidemia E78.5 [facility] [id number] [place] [address] 29427- 4921 Apr, Diabetes E11.9 and Hyperlipidemia E78.5 [facility] [id number] [place] [address] 21306- 5887 Jan, Chronic kidney disease N18.9 [facility] [id number] [place] [address] 03217- 0401 Sep, Diabetes E11.9 ; Hypertension I10 ; Hyperlipidemia E78.5 and COPD (chronic obstructive pulmonary disease) J44.9 [facility] [address] [place] [address] May, [facility] [id number] [place] [address] 36908- 9790 May, Altered metabolism due to diabetes E11.9 [facility] [address], [place] [address]- 5011 May, Chronic kidney disease N18.9 [facility] [id number] [place] [address] 06061- 1049 May, Chronic kidney disease N18.9 and Back pain M54.9 [facility] [id number] [place] [address] 775245- 9297 Apr, Abdominal pain 789.00 [facility] [id number] [place] [address] 325123- 6090 Apr, Other and unspecified hyperlipidemia 272.4 [facility] [id number] [place] [address] 952944- 7655 Apr, Diabetes mellitus without mention of complication, type II or unspecified type, not stated as uncontrolled 250.00 [facility] [id number] [place] [address] 765968- 4671 Mar, Diabetes mellitus without mention of complication, type II or unspecified type, not stated as uncontrolled 250.00 [facility] [id number] [place] [address] 87281- 1004 Feb, Diabetes mellitus without mention of complication, type II or unspecified type, uncontrolled 250.02 ; Diabetes mellitus without mention of complication, type II or unspecified type, not stated as uncontrolled 250.00 and Acute sinusitis 461.9 [facility] [id number] [place] [address] 05383- 3183 Nov, [facility] [id number] [place] [address] 71144- 2869 Nov, [facility] [id number] [place] [address] 761871- 1462 Sep, [facility] [id number] [place] [address] 32083- 8206 Sep, [facility] [id number] [place] [address] 99669- 2879 Jul, [facility] [id number] [place] [address] 473362- 5386 Jul, [facility] [id number] [place] [address] 217972- 7738 Jul, [facility] [place] [facility] [address] [id number] [place] [address]- 9275 Jul, [facility] [place] [facility] [address] [id number] [place] [address]- 4790 Jul, [facility] [place] [facility] [address] [id number] [place] [address]- 9217 Jul, [facility] [place] [facility] [address] [id number] [place] [address]- 9370 Jun, [facility] [place] [facility] [address] [id number] [place] [address]- 3629 Jun, [facility] [place] [facility] [address] [id number] [place] [address]- 2813 May, [facility] [place] [facility] [address] [id number] [place] [address]- 5424 May, [facility] [place] [facility] [address] [id number] [place] [address]- 8848 May, [facility] [place] [facility] [address] [id number] [place] [address]- 1418 May, [facility] [place] [facility] [address] [id number] [place] [address]- 8517 Mar, [facility] [place] [facility] [address] [id number] [place] [address]- 8124 Mar, [facility] [place] [facility] [address] [id number], [place] [address]- 9229 December, [facility] [place] [facility] [address] [id number] [place] [address]- 2986 December, [facility] [place] [facility] [address] [id number] [place] [address]- 3621 Nov, [facility] [place] [facility] [address] [id number] [place] [address]- 0144 Nov, [facility] [place] [facility] [address] [id number] [place] [address]- 8358 Nov, [facility] [place] [facility] [address] [id number] [place] [address]- 4974 Nov, [facility] [place] [facility] [address] [id number] [place] 9043 Nov, [facility] [place] [facility] [address] [id number] [place] [address]- 6988 Nov, [facility] [place] [facility] [address] [id number] [place] [address]- 9586 Nov, [facility] [place] [facility] [address] [id number] [place] 4948 Nov, [facility] [place] [facility] [address] [id number] [place] [address]- 5667 Nov, [facility] [place] [facility] [address] [id number] [place] [address]- 2915 Nov, [facility] [place] [facility] [address] [id number] [place] [address]- 4396 Oct, [facility] [place] [facility] [address] [id number] [place] [address]- 0853 Oct, [facility] [place] [facility] [address] [id number] [place] [address]- 3117 Oct, [facility] [place] [facility] [address] [id number] [place] [address]- 5778 Oct, [facility] [place] [facility] [address] [id number] [place] [address]- 8527 Sep, [facility] [place] [facility] [address] [id number] [place] [address]- 0488 Sep, [facility] [place] [facility] [address] [id number] [place] [address]- 7883 Aug, [facility] [place] [facility] [address] [id number] [place] [address]- 0552 Aug, [facility] [place] [facility] [address] [id number] [place] [address]- 8407 Aug, [facility] [address] [id number] [place] [address]- 3895 Aug, [facility] [place] [facility] [address] [id number] [place] [address]- 8199 Jun, [facility] [place] [facility] [address] [id number] [place] [address]- 9159 Jun, [facility] [place] [facility] [address] [id number] [place] [address]- 6067 Mar, [facility] [place] [facility] [address] [id number] [place] [address]- 6259 Feb, [facility] [place] [facility] [address] [id number] [place] [address]- 1896 Feb, [facility] [place] [facility] [address] [id number] [place] [address]- 2114 Feb, [facility] [place] [facility] [address] [id number] [place] [address]- 9232 Feb, [facility] [place] [facility] [address] [id number] [place] [address]- 8190 Jan, [facility] [place] [facility] [address] [id number] [place] [address]- 0032 Oct, [facility] [place] [facility] [address] [id number] [place] [address]- 8082 Sep, [facility] [place] [facility] [address] [id number] [place] [address]- 1791 Sep, [facility] [place] [facility] [address] [id number] [place] [address]- 6600 Aug, [facility] [place] [facility] [address] [id number] [place] [address]- 4097 Aug, [facility] [place] [facility] [address] [id number], [place] [address]- 1800 Jun, [facility] [address] 3815 Jun, [facility] [address] 2833 Jun, [facility] [address] 7151 Jun, [facility] [address] 7367 Apr, [facility] [address], [place] [address]- 9065 December, [facility] [address], [place] [address]- 7461 Sep, [facility] [address], [place] [address]- 4513 Sep, [facility] [address] [place] [address]- 9395 Sep, [facility] [address] 9937 Aug, [facility] [address], [place] [address]- 5565 Aug, [facility] [address], [place] [address]- 6189 Aug, IMMUNIZATIONS No Known Immunizations SOCIAL HISTORY Never Assessed REASON FOR VISIT Medicare AWV - Initial Visit- David Cason RN PLAN OF CARE Activity Details Follow Up 1 Year Reason: VITAL SIGNS Height 70 in 2018-01-04 Weight 205 lbs 2018-01-04 Temperature 98.0 degrees Fahrenheit 2018-01-04 Heart Rate 80 bpm 2018-01-04 Respiratory Rate 18 2018-01-04 BMI 29.41 kg/m2 2018-01-04 Blood pressure systolic 134 mmHg 2018-01-04 Blood pressure diastolic 78 mmHg 2018-01-04 MEDICATIONS Medication Instructions Dosage Frequency Start Date End Date Duration Status Metformin HCl 1000MG Orally 2 times a day 1 tablet 12h 90 days Active Lipitor 10MG Orally Once a day 1 tablet 24h Active Trulicity 1.5 MG/0.5ML Subcutaneous once weekly 0.5 ml Apr, Oct, 90 days Active GlipiZIDE 5MG TAKE ONE TABLET BY MOUTH ONCE DAILY Active Hydrochlorothiazide 25MG Orally Once a day 1 tablet 24h Active Finasteride 5MG Orally Once a day 1 tablet 24h Active Lisinopril 20MG TAKE ONE TABLET BY MOUTH ONCE DAILY Active RESULTS No Results PROCEDURES Procedure Date Ordered Result Body Site FQ VISIT IPPE/AWV January 04, 2018 ANNUAL DARREN VST; PERSNL PPS INIT January 04, 2018 PT TOBACCO SCREEN RCVD TLK January 04, 2018 FALL RISK ASSESSMENT DOCD January 04, 2018 NEG SCR D PT NOT ELIG F/U/PLN DOC January 04, 2018 INSTRUCTIONS MEDICATIONS ADMINISTERED No Known Medications MEDICAL (GENERAL) HISTORY Type Description Date Medical History Type II diabetic Medical History hypertension Surgical History colon surgery Surgical History scar tissue removal Surgical History bilateral cataract surgeries Hospitalization History surgery Hospitalization History [facility] - Back pain
--- OUTSIDE RECORDS SUMMARY | 2018-04-06 20:35 | XMS REPORT ---
Author Author NADIA HSU [facility] Address [address] [place] [address] Care Team Providers Care Advanced Manufacturing Consultant Name Role Phone NADIA HSU Unavailable PROBLEMS Type Condition ICD9-CM Code PWR05-MW Code Onset Dates Condition Status SNOMED Code Problem Chronic kidney disease N18.9 Active 011944564 Problem COPD (chronic obstructive pulmonary disease) J44.9 Active 17199339 Problem Hyperlipidemia E78.5 Active 75726840 Problem Hypertrophy (benign) of prostate with urinary obstruction and other lower urinary tract symptoms [LUTS] 600.01 Active 194820316 Problem Other chronic pain G89.29 Active 18515311 Problem Low back pain M54.5 Active 507480354 Problem BPH NOS w ur obs/LUTS N40.1 Active 144533630 Problem Hypertension I10 Active 33188838 Problem Type 2 diabetes mellitus with diabetic chronic kidney disease E11.22 Active 05293229 Problem Chronic kidney disease, 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 Active 108112130 ALLERGIES Substance Reaction Event Type Date Status Morphine Unknown Drug Allergy Oct, Active ENCOUNTERS Encounter Location Date Diagnosis [facility] [id number] [place] [address] 94258- 8232 Feb, Colonic mass K63.9 [facility] [id number] [place] [address] 21626- 9229 Feb, [facility] [id number] [place] [address] 12024- 7957 Feb, Chronic kidney disease, 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 [facility] [id number] [place] [address] 40455- 0337 Feb, Low back pain M54.5 ; Other chronic pain G89.29 and Retroperitoneal lymphadenopathy R59.0 [facility] [address] [place] [address] 16 Dec, 2017 Medicare annual wellness visit, initial Z00.00 ; Hyperlipidemia E78.5 ; Type 2 diabetes mellitus with diabetic chronic kidney disease E11.22 ; COPD (chronic obstructive pulmonary disease) J44.9 ; Chronic kidney disease, 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 ; Hypertension I10 ; BPH NOS w ur obs/ LUTS N40.1 and History of smoking Z87.891 [facility] [id number] [place] [address] 52895- 4082 14 Dec, 2017 Medicare annual wellness visit, initial Z00.00 ; Type 2 diabetes mellitus with diabetic chronic kidney disease E11.22 ; COPD (chronic obstructive pulmonary disease) J44.9 ; Chronic kidney disease, 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 ; Hypertension I10 ; Hyperlipidemia E78.5 ; BPH NOS w ur obs/LUTS N40.1 and History of smoking Z87.891 [facility] [id number] [place] [address] 43251- 0581 Oct, BPH NOS w ur obs/LUTS N40.1 ; COPD (chronic obstructive pulmonary disease) J44.9 ; Hyperlipidemia E78.5 ; Hypertension I10 ; Type 2 diabetes mellitus with diabetic chronic kidney disease E11.22 and Chronic kidney disease, 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 [facility] [id number] [address] Oct, Diabetes E11.9 [facility] [id number] [place] [address] 97668- 1179 Mar, COPD (chronic obstructive pulmonary disease) J44.9 [facility] [id number] [address]2 Mar, Hyperlipidemia E78.5 [facility] [id number] [place] [address] 13210- 2278 Feb, [facility] [id number] [place] [address] 16639- 4185 Feb, [facility] [id number] [address] 2747 Feb, Diabetes E11.9 [facility] [id number] [place] [address] 91675- 0522 Feb, Diabetes E11.9 [facility] [id number] [place] [address] 88328- 2260 Feb, Hypertension I10 ; Diabetes E11.9 and COPD (chronic obstructive pulmonary disease) J44.9 [facility] [id number] [place] [address] 48817- 1967 Aug, Diabetes E11.9 and Hypertension I10 [facility] [id number] [place] [address] 92997- 9715 May, [facility] [id number] [place] [address] 41892- 1291 Apr, Hyperlipidemia E78.5 [facility] [id number] [place] [address] 11716- 3707 Apr, Diabetes E11.9 and Hyperlipidemia E78.5 [facility] [id number] [place] [address] 41386- 9724 Jan, Chronic kidney disease N18.9 [facility] [id number] [place] [address] 53253- 2809 Sep, Diabetes E11.9 ; Hypertension I10 ; Hyperlipidemia E78.5 and COPD (chronic obstructive pulmonary disease) J44.9 [facility] [address] [address] 7253 May, [facility] [id number] [place] [address] 78826- 2424 May, Altered metabolism due to diabetes E11.9 [facility] [id number] [address] 3112 May, Chronic kidney disease N18.9 [facility] [id number] [place] [address] 37168- 4905 May, Chronic kidney disease N18.9 and Back pain M54.9 [facility] [id number] [place] [address] 987136- 1858 Apr, Abdominal pain 789.00 [facility] [id number] [place] [address] 385022- 3179 Apr, Other and unspecified hyperlipidemia 272.4 [facility] [id number] [place] [address] 904438- 7522 Apr, Diabetes mellitus without mention of complication, type II or unspecified type, not stated as uncontrolled 250.00 [facility] [id number] [place] [address] 494117- 7322 Mar, Diabetes mellitus without mention of complication, type II or unspecified type, not stated as uncontrolled 250.00 [facility] [id number] [place] [address] 51834- 6154 Feb, Diabetes mellitus without mention of complication, type II or unspecified type, uncontrolled 250.02 ; Diabetes mellitus without mention of complication, type II or unspecified type, not stated as uncontrolled 250.00 and Acute sinusitis 461.9 [facility] [id number] [place] [address] 84061- 2276 Nov, [facility] [id number] [place] [address] 61809- 3955 Nov, [facility] [id number] [place] [address] 821457- 1031 Sep, [facility] [id number] [place] [address] 77065- 6246 Sep, [facility] [id number] [place] [address] 43507- 3306 Jul, [facility] [id number] [place] [address] 651400- 2236 Jul, [facility] [id number] [place] [address] 296279- 9189 Jul, [facility] [place] [facility] [address] [id number] [place] [address]- 8821 Jul, [facility] [place] [facility] [address] [id number] [place] [address]- 2643 Jul, [facility] [place] [facility] [address] [id number] [place] [address]- 3083 Jul, [facility] [place] [facility] [address] [id number] [place] [address]- 3811 Jun, [facility] [place] [facility] [address] [id number] [place] [address]- 7209 Jun, [facility] [place] [facility] [address] [id number] [place] [address]- 8497 May, [facility] [place] [facility] [address] [id number] [place] [address]- 7963 May, [facility] [place] [facility] [address] [id number] [place] [address]- 8117 May, [facility] [place] [facility] [address] [id number] [place] [address]- 1708 May, [facility] [place] [facility] [address] [id number] [place] [address]- 5265 Mar, [facility] [place] [facility] [address] [id number] [place] [address]- 0266 Mar, [facility] [place] [facility] [address] [id number] [address]- 0498 December, [facility] [place] [facility] [address] [id number] [place] [address]- 5459 December, [facility] [place] [facility] [address] [id number] [place] [address]- 3731 Nov, [facility] [place] [facility] [address] [id number] [place] [address]- 8334 Nov, [facility] [place] [facility] [address] [id number] [place] [address]- 1285 Nov, [facility] [place] [facility] [address] [id number] [place] [address]- 2356 Nov, [facility] [place] [facility] [address] [id number] [place] [address] Nov, [facility] [place] [facility] [address] [id number] [place] [address]- 6548 Nov, [facility] [place] [facility] [address] [id number] [place] [address]- 2814 Nov, [facility] [place] [facility] [address] [id number] [place] [address]23 Nov, [facility] [place] [facility] [address] [id number] [place] [address]- 4314 Nov, [facility] [place] [facility] [address] [id number] [place] [address]- 5540 Nov, [facility] [place] [facility] [address] [id number] [place] [address]- 0745 Oct, [facility] [place] [facility] [address] [id number] [place] [address]- 0593 Oct, [facility] [place] [facility] [address] [id number] [place] [address]- 4488 Oct, [facility] [place] [facility] [address] [id number] [place] [address]- 6583 Oct, [facility] [place] [facility] [address] [id number] [place] [address]- 4013 Sep, [facility] [place] [facility] [address] [id number] [place] [address]- 5780 Sep, [facility] [place] [facility] [address] [id number] [place] [address]- 2455 Aug, [facility] [place] [facility] [address] [id number] [place] [address]- 9936 Aug, [facility] [place] [facility] [address] [id number] [place] [address]- 8034 Aug, [facility] [address] [id number] [place] [address]- 5486 Aug, [facility] [place] [facility] [address] [id number] [place] [address]- 6121 Jun, [facility] [place] [facility] [address] [id number] [place] [address]- 2247 Jun, [facility] [place] [facility] [address] [id number] [place] [address]- 1199 Mar, [facility] [place] [facility] [address] [id number] [place] [address]- 0712 Feb, [facility] [place] [facility] [address] [id number] [place] [address]- 0938 Feb, [facility] [place] [facility] [address] [id number] [place] [address]- 6618 Feb, [facility] [place] [facility] [address] [id number] [place] [address]- 6943 Feb, [facility] [place] [facility] [address] [id number] [place] [address]- 4439 Jan, [facility] [place] [facility] [address] [id number] [place] [address]- 6363 Oct, [facility] [place] [facility] [address] [id number] [place] [address]- 9113 Sep, [facility] [place] [facility] [address] [id number] [place] [address]- 0538 Sep, [facility] [place] [facility] [address] [id number] [place] [address]- 5794 Aug, [facility] [place] [facility] [address] [id number] [place] [address]- 9229 Aug, [facility] [place] [facility] [address] [id number], [place] [address]- 9769 Jun, [facility] [address] [address]- 2268 Jun, [facility] [address] [address]207 Jun, [facility] [address] [address]- 8601 Jun, [facility] [address] 3557 Apr, [facility] [address] [address]- 0096 December, [facility] [address] [address]- 1662 Sep, [facility] [address] [address]- 9054 Sep, [facility] [address] [place] [address]- 1498 Sep, [facility] [address] [address]- 4518 Aug, [facility] [address] [address]- 6280 Aug, [facility] [id number] [address]- 2028 Aug, IMMUNIZATIONS No Known Immunizations SOCIAL HISTORY Never Assessed REASON FOR VISIT COPD-Connor CORBETT PLAN OF CARE Activity Details Follow Up 3 Months Reason: VITAL SIGNS Height 70 in 2017-11-10 Weight 208.6 lbs 2017-11-10 Temperature 98.4 degrees Fahrenheit 2017-11-10 Heart Rate 79 bpm 2017-11-10 Respiratory Rate 2017-11-10 Oximetry on room air:98 % 2017-11-10 BMI 29.93 kg/m2 2017-11-10 Blood pressure systolic 128 mmHg 2017-11-10 Blood pressure diastolic 82 mmHg 2017-11-10 MEDICATIONS Medication Instructions Dosage Frequency Start Date End Date Duration Status Hydrochlorothiazide 25MG Orally Once a day 1 tablet 24h Active Finasteride 5MG Orally Once a day 1 tablet 24h Active Metformin HCl 1000MG Orally 2 times a day 1 tablet 12h 90 days Active Lipitor 10MG Orally Once a day 1 tablet 24h Active ProAir HFA 90 mcg/actuation inhale 2 puffs by Inhalation route every 4 hours as needed PRN shortness of breath/cough December, Not- Taking Ranitidine Acid [employer] 75 MG Orally Twice a day 1 tablet as needed 12h Not-Taking GlipiZIDE 5MG TAKE ONE TABLET BY MOUTH ONCE DAILY Active Zantac 150 MG Orally Twice a day 1 tablet 12h Apr, Not- Taking Trulicity 1.5 MG/0.5ML Subcutaneous once weekly 0.5 ml Apr, Oct, 90 days Active tramadol 50 mg take 1 tablet by Oral route every 6 hours as needed PRN pain Jul, Not-Taking Lisinopril 20MG TAKE ONE TABLET BY MOUTH ONCE DAILY 60 Active Flexeril 10 mg 1 tablet by Oral route PRN hs Jul, Not- Taking Jardiance 25MG Orally Once a day 1 tablet 24h Not-Taking RESULTS No Results PROCEDURES Procedure Date Ordered Result Body Site GLYCATED HEMOGLOBIN TEST November 10, 2017 MICROALBUMIN, SEMIQUANT November 10, 2017 VENIPUNCT, ROUTINE* November 10, 2017 [facility] November 10, 2017 [facility] VISIT ESTABLISHED PATIENT November 10, 2017 INSTRUCTIONS MEDICATIONS ADMINISTERED No Known Medications MEDICAL (GENERAL) HISTORY Type Description Date Medical History Type II diabetic Medical History hypertension Surgical History colon surgery Surgical History scar tissue removal Surgical History bilateral cataract surgeries Hospitalization History surgery Hospitalization History [facility] ER - Back pain
--- OUTSIDE RECORDS SUMMARY | 2018-04-06 20:35 | XMS REPORT ---
Author Author NADIA HSU [facility] Address [address] [place] [address] Care Team Providers Care Associate Dentist Name Role Phone NADIA HSU Unavailable PROBLEMS Type Condition ICD9-CM Code CER20-BC Code Onset Dates Condition Status SNOMED Code Problem Chronic kidney disease N18.9 Active 152763414 Problem COPD (chronic obstructive pulmonary disease) J44.9 Active 09669867 Problem Hyperlipidemia E78.5 Active 83258583 Problem Hypertrophy (benign) of prostate with urinary obstruction and other lower urinary tract symptoms [LUTS] 600.01 Active 961374437 Problem Other chronic pain G89.29 Active 16786375 Problem Low back pain M54.5 Active 369444718 Problem BPH NOS w ur obs/LUTS N40.1 Active 425131055 Problem Hypertension I10 Active 03917151 Problem Type 2 diabetes mellitus with diabetic chronic kidney disease E11.22 Active 56654947 Problem Chronic kidney disease, 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 Active 320232224 ALLERGIES No Information ENCOUNTERS Encounter Location Date Diagnosis [place] [id number] [place] [address] 09722- 1207 Feb, Colonic mass K63.9 [place] [id number] [place] [address] 25864- 9970 Feb, [place] [id number] [place] [address] 71012- 6908 Feb, Chronic kidney disease, 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 [place] [id number] [place] [address] 26165- 9197 Feb, Low back pain M54.5 ; Other chronic pain G89.29 and Retroperitoneal lymphadenopathy R59.0 [facility] [id number] [place] [address] 20891- 8189 December, Medicare annual wellness visit, initial Z00.00 ; Hyperlipidemia E78.5 ; Type 2 diabetes mellitus with diabetic chronic kidney disease E11.22 ; COPD (chronic obstructive pulmonary disease) J44.9 ; Chronic kidney disease, 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 ; Hypertension I10 ; BPH NOS w ur obs/ LUTS N40.1 and History of smoking Z87.891 [facility] [id number] [place] [address] 53151- 6286 14 Dec, 2017 Medicare annual wellness visit, initial Z00.00 ; Type 2 diabetes mellitus with diabetic chronic kidney disease E11.22 ; COPD (chronic obstructive pulmonary disease) J44.9 ; Chronic kidney disease, 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 ; Hypertension I10 ; Hyperlipidemia E78.5 ; BPH NOS w ur obs/LUTS N40.1 and History of smoking Z87.891 [place] [id number] [place] [address] 03356- 3571 Oct, BPH NOS w ur obs/LUTS N40.1 ; COPD (chronic obstructive pulmonary disease) J44.9 ; Hyperlipidemia E78.5 ; Hypertension I10 ; Type 2 diabetes mellitus with diabetic chronic kidney disease E11.22 and Chronic kidney disease, 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 [place] [id number] [place] [address] 79560- 0149 Oct, Diabetes E11.9 [place] [id number] [place] [address] 51344- 0669 Mar, COPD (chronic obstructive pulmonary disease) J44.9 [facility] [id number] [place] [address] 47446- 8441 Mar, Hyperlipidemia E78.5 [place] [id number] [place] [address] 98008- 5792 Feb, [place] [id number] [place] [address] 98902- 0273 Feb, [place] [id number] [place] [address] 56039- 1856 Feb, Diabetes E11.9 [facility] [id number] [place] [address] 99465- 7058 Feb, Diabetes E11.9 [facility] [id number] [place] [address] 14806- 7185 Feb, Hypertension I10 ; Diabetes E11.9 and COPD (chronic obstructive pulmonary disease) J44.9 [facility] [id number] [place] [address] 07625- 9327 Aug, Diabetes E11.9 and Hypertension I10 [facility] [id number] [place] [address] 70061- 8137 May, [facility] [id number] [place] [address] 51269- 2706 Apr, Hyperlipidemia E78.5 [facility] [id number] [place] [address] 15806- 2790 Apr, Diabetes E11.9 and Hyperlipidemia E78.5 [facility] [id number] [place] [address] 56123- 7646 Jan, Chronic kidney disease N18.9 [facility] [id number] [place] [address] 09395- 4868 Sep, Diabetes E11.9 ; Hypertension I10 ; Hyperlipidemia E78.5 and COPD (chronic obstructive pulmonary disease) J44.9 [facility] [id number] [place] [address] 05870- 6226 May, [facility] [id number] [place] [address] 54628- 5828 May, Altered metabolism due to diabetes E11.9 [facility] [id number] [place] [address] 73809- 5499 May, Chronic kidney disease N18.9 [facility] [id number] [place] [address] 00245- 8996 May, Chronic kidney disease N18.9 and Back pain M54.9 [facility] [address] [address]- 7771 Apr, Abdominal pain 789.00 [facility] [id number] [place] [address] 15304- 8557 Apr, Other and unspecified hyperlipidemia 272.4 [facility] [id number] [place] [address] 085695- 9916 Apr, Diabetes mellitus without mention of complication, type II or unspecified type, not stated as uncontrolled 250.00 [facility] [address] [address]- 2810 Mar, Diabetes mellitus without mention of complication, type II or unspecified type, not stated as uncontrolled 250.00 [facility] [address] [place] [address] 45225- 4614 Feb, Diabetes mellitus without mention of complication, type II or unspecified type, uncontrolled 250.02 ; Diabetes mellitus without mention of complication, type II or unspecified type, not stated as uncontrolled 250.00 and Acute sinusitis 461.9 [facility] [address] [address]- 5476 Nov, [facility] [address] [address]- 6761 Nov, [facility] [address] [address]- 3124 Sep, [facility] [address] [address]- 0925 Sep, [facility] [address] [address] Jul, [facility] [address] 1396 Jul, [facility] [address] [address] Jul, [facility] [address] [place] [address]- 3186 Jul, [facility] [place] [facility] [address] [id number] [place] [address]- 2402 Jul, [facility] [place] [facility] [address] [id number] [place] [address]- 1856 Jul, [facility] [place] [facility] [address] [id number] [place] [address]- 8041 Jun, [facility] [place] [facility] [address] [id number] [place] [address]- 5770 Jun, [facility] [place] [facility] [address] [id number] [place] [address]- 9711 May, [facility] [place] [facility] [address] [id number] [place] [address]- 3496 May, [facility] [place] [facility] [address] [id number] [place] [address]- 5812 May, [facility] [place] [facility] [address] [id number] [place] [address]- 6185 May, [facility] [place] [facility] [address] [id number] [place] [address]- 7218 Mar, [facility] [place] [facility] [address] [id number] [place] [address]- 2555 Mar, [facility] [place] [facility] [address] [id number] [place] [address]- 9586 December, [facility] [place] [facility] [address] [id number] [place] [address]- 3036 December, [facility] [place] [facility] [address] [id number] [place] [address]- 0152 Nov, [facility] [place] [facility] [address] [id number] [place] [address]- 6776 Nov, [facility] [place] [facility] [address] [id number] [place] [address]- 0021 Nov, [facility] [place] [facility] [address] [id number] [place] [address]- 5361 Nov, [facility] [place] [facility] [address] [id number] [place] 1059 Nov, [facility] [place] [facility] [address] [id number] [place] 9291 Nov, [facility] [place] [facility] [address] [id number] [place] [address]- 9267 Nov, [facility] [place] [facility] [address] [id number] [place] 1422 Nov, [facility] [place] [facility] [address] [id number] [place] [address]- 8565 Nov, [facility] [place] [facility] [address] [id number] [place] [address]- 7493 Nov, [facility] [place] [facility] [address] [id number] [place] [address]- 1978 Oct, [facility] [place] [facility] [address] [id number] [place] [address]- 6166 Oct, [facility] [place] [facility] [address] [id number] [place] [address]- 3914 Oct, [facility] [place] [facility] [address] [id number] [place] [address]- 6317 Oct, [facility] [place] [facility] [address] [id number] [place] [address]- 7103 Sep, [facility] [place] [facility] [address] [id number] [place] [address]- 0909 Sep, [facility] [place] [facility] [address] [id number] [place] [address]- 6243 Aug, [facility] [place] [facility] [address] [id number] [place] [address]- 7534 Aug, [facility] [place] [facility] [address] [id number] [place] [address]- 3676 Aug, [facility] [address] [id number] [place] [address]- 0027 Aug, [facility] [place] [facility] [address] [id number] [place] [address]- 9915 Jun, [facility] [place] [facility] [address] [id number] [place] [address]- 8947 Jun, [facility] [place] [facility] [address] [id number] [place] [address]- 3619 Mar, [facility] [place] [facility] [address] [id number] [place] [address]- 2223 Feb, [facility] [place] [facility] [address] [id number] [place] [address]- 7606 Feb, [facility] [address] [id number] [place] [address]- 6043 Feb, [facility] [place] [facility] [address] [id number] [place] [address]- 8407 Feb, [facility] [place] [facility] [address] [id number] [place] [address]- 5233 Jan, [facility] [place] [facility] [address] [id number] [place] [address]- 6022 Oct, [facility] [place] [facility] [address] [id number] [place] [address]- 8626 Sep, [facility] [place] [facility] [address] [id number] [place] [address]- 6600 Sep, [facility] [place] [facility] [address] [id number] [place] [address]- 6136 Aug, [facility] [place] [facility] [address] [id number] [place] [address]- 2983 Aug, [facility] [place] [facility] [address] [id number] [place] [address]- 8528 16 Jun, 2012 [facility] [address] [facility] [id number] [address] 2546 16 Jun, 2012 [facility] [address] [facility] [id number] [address]- 6756 Jun, [facility] [address] [facility] [id number] [address]- 2636 Jun, [facility] [address] [address]- 7171 Apr, [facility] [address] [address]- 4577 December, [facility] [address] [address]- 8566 Sep, [facility] [address] [address]- 2933 Sep, [facility] [address] [address]- 6531 Sep, [facility] [address] [address]- 6392 Aug, [facility] [address] [address]- 6755 Aug, [facility] [id number] [address]- 9883 Aug, IMMUNIZATIONS No Known Immunizations SOCIAL HISTORY Never Assessed REASON FOR VISIT Lab (walk-in) PLAN OF CARE VITAL SIGNS MEDICATIONS Unknown Medications RESULTS No Results PROCEDURES Procedure Date Ordered Result Body Site LAB NOT BILLED BY [facility] January 06, 2018 INSTRUCTIONS MEDICATIONS ADMINISTERED No Known Medications MEDICAL (GENERAL) HISTORY Type Description Date Medical History Type II diabetic Medical History hypertension Surgical History colon surgery Surgical History scar tissue removal Surgical History bilateral cataract surgeries Hospitalization History surgery Hospitalization History [facility] ER - Back pain
--- OUTSIDE RECORDS SUMMARY | 2018-04-06 20:38 | XMS REPORT | Continuity of Care Document ---
Author Author [facility] Address Unknown Phone Unavailable Allergies Active Description Code Type Severity Reaction Onset Reported/Identified Relationship to Patient Clinical Status Yes morphine Drug Allergy N/A N/A 07/31/2014 Yes No Known Drug Allergies [id number] Drug Allergy Unknown N/A 03/16/2018 Medications There is no data. Problems Date Dx Coded Attending Type Code Diagnosis Diagnosed By 12/26/2010 401.9 UNSPECIFIED ESSENTIAL HYPERTENSION 12/26/2010 401.9 UNSPECIFIED ESSENTIAL HYPERTENSION 12/26/2010 401.9 UNSPECIFIED ESSENTIAL HYPERTENSION 12/26/2010 SHADI MCCABE, NADIA 401.9 UNSPECIFIED ESSENTIAL HYPERTENSION 12/26/2010 SHADI MCCABE, NADIA 401.9 UNSPECIFIED ESSENTIAL HYPERTENSION 12/26/2010 SHADI MCCABE, NADIA 401.9 UNSPECIFIED ESSENTIAL HYPERTENSION 12/26/2010 SHADI MCCABE, NADIA 401.9 UNSPECIFIED ESSENTIAL HYPERTENSION 12/26/2010 SHADI MCCABE, NADIA 401.9 UNSPECIFIED ESSENTIAL HYPERTENSION 12/26/2010 SHADI MCCABE, NADIA 401.9 UNSPECIFIED ESSENTIAL HYPERTENSION 12/26/2010 SHADI MCCABE, NADIA 401.9 UNSPECIFIED ESSENTIAL HYPERTENSION 09/23/2011 790.29 HYPERGLYCEMIA 09/23/2011 790.29 Hyperglycemia 09/23/2011 790.29 Hyperglycemia 09/23/2011 NADIA HSU MD 790.29 Hyperglycemia 09/23/2011 SHADI MCCABE, NADIA 790.29 Hyperglycemia 09/23/2011 SHADI MCCABE, NADIA 790.29 Hyperglycemia 09/23/2011 NADIA HSU MD 790.29 Hyperglycemia 09/23/2011 SHADI MCCABE, NADIA 790.29 Hyperglycemia 09/23/2011 SHADI MCCABE, NADIA 790.29 Hyperglycemia 09/23/2011 NADIA HSU MD 790.29 HYPERGLYCEMIA 10/07/2011 250.00 DIABETES MELLITUS TYPE 2 10/07/2011 250.00 DIABETES MELLITUS TYPE 2 10/07/2011 250.00 DIABETES MELLITUS TYPE 2 10/07/2011 SHADI MCCABE, NADIA 250.00 DIABETES MELLITUS TYPE 2 10/07/2011 SHADI MCCABE, NADIA 250.00 DIABETES MELLITUS TYPE 2 10/07/2011 SHADI MCCABE, NADIA 250.00 DIABETES MELLITUS TYPE 2 10/07/2011 SHADI MCCABE, NADIA 250.00 DIABETES MELLITUS TYPE 2 10/07/2011 SHADI MCCABE, NADIA 250.00 DIABETES MELLITUS TYPE 2 10/07/2011 SHADI MCCABE, NADIA 250.00 DIABETES MELLITUS TYPE 2 10/07/2011 SHADI MCCABE, NADIA 250.00 DIABETES MELLITUS TYPE 2 10/21/2011 601.9 PROSTATITIS UNSPECIFIED 10/21/2011 601.9 Prostatitis Unspecified 10/21/2011 601.9 Prostatitis Unspecified 10/21/2011 SHADI MCCABE, NADIA 601.9 Prostatitis Unspecified 10/21/2011 SHADI MCCABE, NADIA 601.9 Prostatitis Unspecified 10/21/2011 SHADI MCCABE, NADIA 601.9 Prostatitis Unspecified 10/21/2011 SHADI MCCABE, NADIA 601.9 Prostatitis Unspecified 10/21/2011 SHADI MCCABE, NADIA 601.9 Prostatitis Unspecified 10/21/2011 SHADI MCCABE, NADIA 601.9 Prostatitis Unspecified 10/21/2011 SHADI MCCABE, NADIA 601.9 PROSTATITIS UNSPECIFIED 09/17/2012 600.01 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 AND OTHER LOWER URINARY TRACT SYMPTOMS (LUTS) 09/17/2012 600.01 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 AND OTHER LOWER URINARY TRACT SYMPTOMS (LUTS) 09/17/2012 NADIA HSU MD 600.01 HYPERTROPHY (BENIGN) OF PROSTATE WITH URINARY OBSTRUCTION AND OTHER LOWER URINARY TRACT SYMPTOMS (LUTS) 09/17/2012 NADIA HSU MD 600.01 HYPERTROPHY (BENIGN) OF PROSTATE WITH URINARY OBSTRUCTION AND OTHER LOWER URINARY TRACT SYMPTOMS (LUTS) 09/17/2012 NADIA HSU MD 600.01 HYPERTROPHY (BENIGN) OF PROSTATE WITH URINARY OBSTRUCTION AND OTHER LOWER URINARY TRACT SYMPTOMS (LUTS) 09/17/2012 NADIA HSU MD 600.01 HYPERTROPHY (BENIGN) OF PROSTATE WITH URINARY OBSTRUCTION AND OTHER LOWER URINARY TRACT SYMPTOMS (LUTS) 09/17/2012 NADIA HSU MD 600.01 HYPERTROPHY (BENIGN) OF PROSTATE WITH URINARY OBSTRUCTION AND OTHER LOWER URINARY TRACT SYMPTOMS (LUTS) 09/17/2012 NADIA HUS MD 600.01 HYPERTROPHY (BENIGN) OF PROSTATE WITH URINARY OBSTRUCTION AND OTHER LOWER URINARY TRACT SYMPTOMS (LUTS) 10/19/2012 NADIA HSU MD 786.05 SHORTNESS OF BREATH 10/19/2012 NADIA HSU MD 786.05 SHORTNESS OF BREATH 10/19/2012 NADIA HSU MD 786.05 SHORTNESS OF BREATH 10/19/2012 NADIA HSU MD 786.05 SHORTNESS OF BREATH 10/19/2012 NADIA HSU MD 786.05 SHORTNESS OF BREATH 10/19/2012 NADIA HSU MD 786.05 SHORTNESS OF BREATH 03/15/2013 NADIA HSU MD 250.02 DIABETES MELLITUS WITHOUT MENTION OF COMPLICATION TYPE II OR UNSPECIFIED TYPE UNCONTROLLED 03/15/2013 NADIA HSU MD 496 CHRONIC AIRWAY OBSTRUCTION NOT ELSEWHERE CLASSIFIED 03/15/2013 NADIA HSU MD 250.02 DIABETES MELLITUS WITHOUT MENTION OF COMPLICATION TYPE II OR UNSPECIFIED TYPE UNCONTROLLED 03/15/2013 NADIA HSU MD 496 CHRONIC AIRWAY OBSTRUCTION NOT ELSEWHERE CLASSIFIED 03/15/2013 NADIA HSU MD 250.02 DIABETES MELLITUS WITHOUT MENTION OF COMPLICATION TYPE II OR UNSPECIFIED TYPE UNCONTROLLED 03/15/2013 NADIA HSU MD 496 CHRONIC AIRWAY OBSTRUCTION NOT ELSEWHERE CLASSIFIED 03/15/2013 NADIA HSU MD 250.02 DIABETES MELLITUS WITHOUT MENTION OF COMPLICATION TYPE II OR UNSPECIFIED TYPE UNCONTROLLED 03/15/2013 NADIA HSU MD 496 CHRONIC AIRWAY OBSTRUCTION NOT ELSEWHERE CLASSIFIED 03/15/2013 NADIA HSU MD 250.02 DIABETES MELLITUS WITHOUT MENTION OF COMPLICATION TYPE II OR UNSPECIFIED TYPE UNCONTROLLED 03/15/2013 NADIA HSU MD 496 CHRONIC AIRWAY OBSTRUCTION NOT ELSEWHERE CLASSIFIED 07/31/2014 NADIA HSU MD 723.1 CERVICALGIA 07/31/2014 NADIA HSU MD 723.1 CERVICALGIA 01/13/2018 GREGORY ACEVES MD Ot 598.9 URETHRAL STRICTURE NOS 02/22/2018 GREGORY ACEVES MD Ot 598.9 URETHRAL STRICTURE NOS 02/23/2018 GUDELIA LOO MD Ot I10 ESSENTIAL (PRIMARY) HYPERTENSION 02/23/2018 GUDELIA LOO MD Ot K21.9 GASTRO-ESOPHAGEAL REFLUX DISEASE WITHOUT 02/23/2018 GUDELIA LOO MD Ot M54.5 LOW BACK PAIN 02/23/2018 GUDELIA LOO MD Ot Z79.52 MATERIAL CONTROL CLERK (CURRENT) USE OF SYSTEMIC STER 02/23/2018 KG LOO MDUS J Ot Z85.038 PERSONAL HISTORY OF MALIGNANT NEOPLASM O 02/23/2018 KG LOO MDUS J Ot Z87.891 PERSONAL HISTORY OF NICOTINE DEPENDENCE 02/23/2018 KG LOO MDUS J Ot Z90.49 ACQUIRED ABSENCE OF OTHER SPECIFIED PART 02/24/2018 GUDELIA LOO MD J Ot I10 ESSENTIAL (PRIMARY) HYPERTENSION 02/24/2018 GUDELIA LOO MD Ot K21.9 GASTRO-ESOPHAGEAL REFLUX DISEASE WITHOUT 02/24/2018 GUDELIA LOO MD J Ot M54.5 LOW BACK PAIN 02/24/2018 GUDELIA LOO MD J Ot Z79.52 MATERIAL CONTROL CLERK (CURRENT) USE OF SYSTEMIC STER 02/24/2018 GUDELIA LOO MD J Ot Z85.038 PERSONAL HISTORY OF MALIGNANT NEOPLASM O 02/24/2018 KG LOO MDUS J Ot Z87.891 PERSONAL HISTORY OF NICOTINE DEPENDENCE 02/24/2018 GUDELIA LOO MD Ot Z90.49 ACQUIRED ABSENCE OF OTHER SPECIFIED PART 03/09/2018 YOLA MCCABE, GREGORY Fernandez Ot 598.9 URETHRAL STRICTURE NOS 03/11/2018 NADIA HSU MD Ot K80.20 CALCULUS OF GALLBLADDER W/O CHOLECYSTITI 03/11/2018 NADIA HSU MD Ot N18.2 CHRONIC KIDNEY DISEASE, STAGE 2 (MILD) 03/11/2018 NADIA HSU MD Ot R16.0 HEPATOMEGALY, NOT ELSEWHERE CLASSIFIED 03/11/2018 NADIA HSU MD Ot R59.0 LOCALIZED ENLARGED LYMPH NODES 03/11/2018 NADIA HSU MD Ot Z85.038 PERSONAL HISTORY OF MALIGNANT NEOPLASM O 03/11/2018 NADIA HSU MD Ot K80.20 CALCULUS OF GALLBLADDER W/O CHOLECYSTITI 03/11/2018 NADIA HSU MD Ot N18.2 CHRONIC KIDNEY DISEASE, STAGE 2 (MILD) 03/11/2018 NADIA HSU MD Ot R16.0 HEPATOMEGALY, NOT ELSEWHERE CLASSIFIED 03/11/2018 NADIA HSU MD Ot R59.0 LOCALIZED ENLARGED LYMPH NODES 03/11/2018 NADIA HSU MD Ot Z85.038 PERSONAL HISTORY OF MALIGNANT NEOPLASM O 03/15/2018 YOLA MCCABE, GREGORY Fernandez Ot 598.9 URETHRAL STRICTURE NOS 03/15/2018 NADIA HSU MD Ot K80.20 CALCULUS OF GALLBLADDER W/O CHOLECYSTITI 03/15/2018 NADIA HSU MD Ot N18.2 CHRONIC KIDNEY DISEASE, STAGE 2 (MILD) 03/15/2018 NADIA HSU MD Ot R16.0 HEPATOMEGALY, NOT ELSEWHERE CLASSIFIED 03/15/2018 NADIA HSU MD Ot R59.0 LOCALIZED ENLARGED LYMPH NODES 03/15/2018 NADIA HSU MD Ot Z85.038 PERSONAL HISTORY OF MALIGNANT NEOPLASM O 03/19/2018 JULIO CESAR LICEA DO Ot D12.2 BENIGN NEOPLASM OF ASCENDING COLON 03/19/2018 JULIO CESAR LICEA DO Ot E11.42 TYPE 2 DIABETES MELLITUS WITH DIABETIC P 03/19/2018 JULIO CESAR LICEA DO Ot I10 ESSENTIAL (PRIMARY) HYPERTENSION 03/19/2018 JULIO CESAR LICEA DO Ot J44.9 CHRONIC OBSTRUCTIVE PULMONARY DISEASE, U 03/19/2018 JULIO CESAR LICEA DO Ot Z79.84 MATERIAL CONTROL CLERK (CURRENT) USE OF ORAL HYPOGLYC 03/19/2018 JULIO CESAR LICEA DO Ot Z85.038 PERSONAL HISTORY OF MALIGNANT NEOPLASM O 03/19/2018 JULIO CESAR LICEA DO Ot Z87.891 PERSONAL HISTORY OF NICOTINE DEPENDENCE Procedures Code [place] [address] A1C (IN-HOUSE) 09/17/2012 28518 MICRO ALBUMIN-IN HOUSE 09/17/2012 22155 MICROALBUMIN 09/18/2012 91562 PULMONARY FUNCTION TEST 09/20/2012 79231 ROUTINE VENIPUNCTURE 10/19/2012 29959 CMP 10/19/2012 82517 LIPID PANEL 10/19/2012 [id number] GFR CALC (RESULT ONLY) 10/19/2012 08984 SPIROMETRY 10/19/2012 29339 BRONCHODILATION PRE/POST 10/19/2012 36352 RESPIRATORY FLOW VOLUME LOOP 10/19/2012 50472 A1C (IN-HOUSE) 11/21/2013 50440 ROUTINE VENIPUNCTURE 11/25/2013 [id number] GFR CALC (RESULT ONLY) 11/25/2013 65418 CMP 11/25/2013 83302 LIPID PANEL 11/25/2013 09125 ROUTINE VENIPUNCTURE 07/31/2014 90957 A1C (IN-HOUSE) 07/31/2014 43717 BMP 07/31/2014 [id number] GFR CALC (RESULT ONLY) 07/31/2014 95746 OXIMETRY 08/04/2014 Results Test Result Range Comp. Metabolic Panel (14) - 05/21/16 08:17 Glucose, Serum 180 mg/dL 65-99 BUN 10 mg/dL 8-27 Creatinine, Serum 1.05 mg/dL 0.76-1.27 eGFR If NonAfricn Am 72 mL/min/1.73 >59 eGFR If Africn Am 83 mL/min/1.73 >59 BUN/Creatinine Ratio 10 10-22 Sodium, Serum 139 mmol/L 134-144 Potassium, Serum 4.8 mmol/L 3.5-5.2 Chloride, Serum 97 mmol/L 97-108 Carbon Dioxide, Total 24 mmol/L 18-29 Calcium, Serum 9.7 mg/dL 8.6-10.2 Protein, Total, Serum 6.5 g/dL 6.0-8.5 Albumin, Serum 4.3 g/dL 3.6-4.8 Globulin, Total 2.2 g/dL 1.5-4.5 A/G Ratio 2.0 1.1-2.5 Bilirubin, Total 0.7 mg/dL 0.0-1.2 Alkaline Phosphatase, S 77 IU/L 39-117 AST (SGOT) 25 IU/L 0-40 ALT (SGPT) 34 IU/L 0-44 Lipid Panel - 05/21/16 08:17 Cholesterol, Total 118 mg/dL 100-199 Triglycerides 142 mg/dL 0-149 HDL Cholesterol 25 mg/dL >39 VLDL Cholesterol Nathan 28 mg/dL 5-40 LDL Cholesterol Calc 65 mg/dL 0-99 CMP - 11/10/17 10:47 GLUCOSE 147 mg/dL 65-99 UREA NITROGEN (BUN) 13 mg/dL 7-25 CREATININE 1.31 mg/dL 0.70-1.18 eGFR NON-AFR. [place] 55 mL/min/1.73m2 > OR=60 eGFR 63 mL/min/1.73m2 > OR=60 BUN/CREATININE RATIO 10 (calc) 6-22 SODIUM 137 mmol/L 135-146 POTASSIUM 4.3 mmol/L 3.5-5.3 CHLORIDE 100 mmol/L 98-110 CARBON DIOXIDE 28 mmol/L 20-31 CALCIUM 9.5 mg/dL 8.6-10.3 PROTEIN, TOTAL 6.8 g/dL 6.1-8.1 ALBUMIN 4.5 g/dL 3.6-5.1 GLOBULIN 2.3 g/dL (calc) 1.9-3.7 ALBUMIN/GLOBULIN RATIO 2.0 (calc) 1.0-2.5 BILIRUBIN, TOTAL 0.7 mg/dL 0.2-1.2 ALKALINE PHOSPHATASE 81 U/L 40-115 AST 19 U/L 10-35 ALT 24 U/L 9-46 LIPID PANEL - 01/06/18 08:19 CHOLESTEROL, TOTAL 106 mg/dL <200 HDL CHOLESTEROL 29 mg/dL >40 TRIGLYCERIDES 118 mg/dL <150 LDL-CHOLESTEROL 57 mg/dL (calc) NRG CHOL/HDLC RATIO 3.7 (calc) <5.0 NON HDL CHOLESTEROL 77 mg/dL (calc) <130 PSA - 01/06/18 08:19 PSA, TOTAL 0.5 ng/mL < OR=4.0 Serum or plasma urea nitrogen measurement (mass/volume) - 03/10/18 09:23 Serum or plasma urea nitrogen measurement (mass/volume) 16 mg/dL 7-18 Serum or plasma creatinine measurement with calculation of estimated glomerular filtration rate - 03/10/18 09:23 Serum or plasma creatinine measurement (mass/volume) 1.44 mg/dL 0.60-1.30 Serum or plasma creatinine measurement with calculation of estimated glomerular filtration rate 48 NRG Encounters ACCT No. Visit Date/Time Discharge Status Pt. Type Provider Facility Loc./Unit Complaint [id number] 07/31/2014 13:53:00 07/31/2014 23:59:59 ABBY Outpatient NADIA HSU MD [id number] 07/31/2014 13:53:00 07/31/2014 23:59:59 ABBY Outpatient NADIA HSU MD [id number] 11/25/2013 08:33:00 11/25/2013 23:59:59 ABBY Outpatient NADIA HSU MD [id number] 11/21/2013 14:41:00 11/21/2013 23:59:59 CLS Outpatient NADIA HSU MD [id number] 03/15/2013 10:41:00 03/15/2013 23:59:59 CLS Outpatient NADIA HSU MD [id number] 10/19/2012 07:45:00 10/19/2012 23:59:59 CLS Outpatient NADIA HSU MD [id number] 09/17/2012 10:13:00 09/17/2012 23:59:59 CLS Outpatient [id number] 09/17/2012 10:13:00 09/17/2012 23:59:59 CLS Outpatient [id number] 01/13/2012 10:32:00 01/13/2012 23:59:59 CLS Outpatient NADIA HSU MD [id number] 01/13/2012 10:32:00 01/13/2012 23:59:59 CLS Outpatient [id number] 05/22/2016 08:06:00 Document Registration [id number] 03/16/2018 12:21:00 03/16/2018 17:25:00 DIS Outpatient JULIO CESAR LICEA DO [facility] ENDO RECTAL BLEEDING,MASS IN ASCENDING COLON [id number] 03/10/2018 09:08:00 03/10/2018 23:59:59 CLS Outpatient NADIA HSU MD [facility] RAD RETROPERITONEAL LYMPHADENOPATHY [id number] 02/22/2018 23:18:00 02/23/2018 00:53:00 DIS Emergency GUDELIA LOO MD [facility] ER BACK PAIN [id number] 01/14/2018 08:15:00 01/14/2018 23:59:59 CLS Preadmit NADIA HSU MD [facility] RAD NICOTINE DEPENDENCE Z87.891 [id number] 04/13/2013 08:31:00 04/13/2013 23:59:59 CLS Outpatient GREGORY ACEVES MD [facility] RAD STRICTURE [id number] 01/13/2018 10:34:00 Document Registration [id number] 02/25/2018 13:40:00 02/25/2018 23:59:59 CLS Outpatient NADIA HSU MD [facility] [id number] 01/06/2018 08:40:00 Document Registration [id number] 11/10/2017 10:20:00 Document Registration
[2018-04-06] MEDS ORDERED: NS IV 1000 ML 1,000 ML IV SCH (21:15)
[2018-04-06 21:27] LABS: BASOPHILS # (AUTO) 0.1 10^3/uL (0.0-0.1); BASOPHILS % (AUTO) 1 % (0-10); EOSINOPHILS # (AUTO) 0.3 10^3/uL (0.0-0.3); EOSINOPHILS % (AUTO) 2 % (0-10); HEMATOCRIT 33 % (40-54); HEMOGLOBIN 10.8 G/DL (13.3-17.7); LYMPHOCYTES # (AUTO) 1.6 X 10^3 (1.0-4.0); LYMPHOCYTES % (AUTO) 13 % (12-44); MEAN CORPUSCULAR HEMOGLOBIN 24 PG (25-34); MEAN CORPUSCULAR HGB CONC 33 G/DL (32-36); MEAN CORPUSCULAR VOLUME 72 FL (80-99); MEAN PLATELET VOLUME 10.3 FL (7.4-10.4); MONOCYTES # (AUTO) 1.4 X 10^3 (0.0-1.0); MONOCYTES % (AUTO) 11 % (0-12); NEUTROPHILS # (AUTO) 9.1 X 10^3 (1.8-7.8); NEUTROPHILS % (AUTO) 74 % (42-75); PLATELET COUNT 307 10^3/uL (130-400); RED BLOOD COUNT 4.59 10^6/uL (4.35-5.85); RED CELL DISTRIBUTION WIDTH 14.8 % (10.0-14.5); WHITE BLOOD COUNT 12.4 10^3/uL (4.3-11.0)
[2018-04-06 21:45] LABS: ALBUMIN 3.9 GM/DL (3.2-4.5); BILIRUBIN,TOTAL 0.5 MG/DL (0.1-1.0); CALCIUM 9.5 MG/DL (8.5-10.1); CREATININE SERUM 1.41 MG/DL (0.60-1.30); TOTAL PROTEIN 6.8 GM/DL (6.4-8.2)
[2018-04-06] MEDS ORDERED: inSUlin (REGULAR) HUMAN 1 UNIT/0.01 ML (CHARGE PER UNIT) SC ONE (22:00)
[2018-04-06 22:42] LABS: BILIRUBIN,URINE NEGATIVE (NEGATIVE); CLARITY,URINE CLEAR; COLOR,URINE YELLOW; GLUCOSE, URINE (UA) 4+ (NEGATIVE); KETONES,URINE NEGATIVE (NEGATIVE); LEUKOCYTE ESTERASE ,URINE NEGATIVE (NEGATIVE); NITRITE,URINE NEGATIVE (NEGATIVE); PH,URINE 5 (5-9); PROTEIN,URINE NEGATIVE (NEGATIVE); UROBILINOGEN,URINE NORMAL (NORMAL)
--- NOTE | 2018-04-06 23:01 | ED General ---
General Chief Complaint: Glucose Problems Stated Complaint: BS HIGH, OVER 600 Nursing Triage Note: Pt ambulated to rm 3 w/o difficulty. Pt states he is having his colon removed on due to stage 4 metastatic colon cancer. Pt had pre-op today and was told his blood sugar was high and he needed to get blood sugar under control before surgery on . Pt states blood sugar was 600+ earlier today, 547 at home before coming to ED. Pt's BS at assessment was 340. Pt states he is prescribed trulicty, but has not taken it for two months. Nursing Sepsis Screen: No Definite Risk History of Present Illness Date Seen by Provider: Apr 06, 2018 Time Seen by Provider: 21:15 Initial Comments Patient is a 72-year-old male presents to the emergency room with complaints of having elevated blood sugars today. He had outpatient lab work for a colon resection that is scheduled for 04/08/18 today and they called him and told him that he had elevated blood sugars. His is a diabetic and she checked his sugar and stated that it was around 600 today and slowly started to come down. On arrival to the emergency room his blood sugar was 340. He is a known diabetic and is prescribed Trulisity has not taken it for 2 months. His PCP is Dr. Quinteros Timing/Duration: 1 Day Associated Systoms: Denies Symptoms Allergies and Home Medications Allergies Coded Allergies: morphine (Verified Adverse Reaction, Unknown, itching, 04/06/18) Home Medications Atorvastatin Calcium 10 Mg Tablet, 10 MG PO DAILY, (Reported) Finasteride 5 Mg Tablet, 5 MG PO DAILY, (Reported) Glipizide 5 Mg Tablet, 5 MG PO DAILY, (Reported) Hydrochlorothiazide 25 Mg Tablet, 25 MG PO DAILY, (Reported) Lisinopril 20 Mg Tablet, 20 MG PO DAILY, (Reported) Metformin HCl 1,000 Mg Tablet, 1,000 MG PO BID, (Reported) Patient Home Medication List Home Medication List Reviewed: Yes Review of Systems Constitutional: see HPI; No fever Skin: see HPI; No change in color, No change in hair/nails All Other Systems Reviewed Negative Unless Noted: Yes Past Mdaqgvv-Oqbabm-Pjbyzq Hx Past Med/Social Hx: Reviewed Nursing Past Med/Soc Hx Patient Social History Alcohol Use: Denies Use Recreational Drug Use: No Smoking Status: Former Smoker Type Used: Cigarettes Former Smoker, Quit: Mar 16, 2008 2nd Hand Smoke Exposure: No Recent Foreign Travel: No Contact w/Someone Who Travel: No Recent Infectious Disease Expo: No Recent Hopitalizations: No Physical Abuse: No Sexual Abuse: No Immunizations Up To Date Tetanus Booster (TDap): Unknown Seasonal Allergies Seasonal Allergies: No Past Medical History Surgeries: Yes (Colon resection, scar tissue removed from urethea) Respiratory: Yes COPD Currently Using CPAP: No Currently Using BIPAP: No Cardiac: No Hypertension Neurological: No Reproductive Disorders: No Sexually Transmitted Disease: No HIV/AIDS: No Genitourinary: No Gastrointestinal: Yes (right colon mass) Gastroesophageal Reflux Musculoskeletal: Yes Arthritis Endocrine: Yes Diabetes, Non-Insulin dep HEENT: Yes (cataracts removed, ) Cancer: Yes Colon Psychosocial: No Nursing Suicide Risk Score: 0 Integumentary: No Blood Disorders: No Family Medical History Reviewed Nursing Family Hx Alcoholism G8 BROTHER Colon cancer 19 MOTHER G8 BROTHER Diabetes mellitus 19 MOTHER G8 BROTHER Hypertension 19 MOTHER G8 BROTHER G8 SISTER Myocardial infarction G8 BROTHER Respiratory disorder 19 MOTHER Physical Exam Vital Signs Vital Signs - First Documented 04/06/18 21:04 Temp 98.9 Pulse 79 Resp 12 B/P (MAP) 140/79 (99) Pulse Ox 98 O2 Delivery Room Air Capillary Refill : Less Than 3 Seconds Height, Weight, BMI Height: 5'9.00" Weight: 194lbs. 8.0oz. 87.969167hp; 27.9 BMI Method:Stated General Appearance: No Apparent Distress, WD/WN Respiratory: Chest Non Tender, Lungs Clear, Normal Breath Sounds, No Accessory Muscle Use, No Respiratory Distress Cardiovascular: Regular Rate, Rhythm, No Edema, No Gallop, No JVD, No Murmur, Normal Peripheral Pulses Neurologic/Psychiatric: Alert, Oriented x3, No Motor/Sensory Deficits Skin: Normal Color, Warm/Dry Progress/Results/Core Measures Suspected Sepsis Recent Fever Within 48 Hours: No Infection Criteria Present: None New/Unexplained Altered Menta: No Sepsis Screen: No Definite Risk SIRS Temperature:98.9 Pulse: 79 Respiratory Rate: 12 Laboratory Tests 04/06/18 21:14: White Blood Count 12.4H Blood Pressure 140 /79 Mean: 99 Laboratory Tests 04/06/18 21:14: Creatinine 1.41H, Platelet Count 307, Total Bilirubin 0.5 Results/Orders Lab Results Laboratory Tests Test 04/06/18 22:45 Range/Units Glucometer 240 H 70-110 MG/DL My Orders Orders - MAURICE RETANA Insulin (Regular) Human (Humulin R (Per (04/06/18 22:00) Ua Culture If Indicated (04/06/18 22:05) Medications Given in ED Vital Signs/I&O Capillary Refill : Less Than 3 Seconds Blood Pressure Mean: 99 Point of Care Testing Finger Stick Blood Glucose: 240 Blood Glucose Action Taken: Maurice Retana notified Progress Note : Time: 22:58 Progress Note I have seen and evaluated the patient. His blood sugar is 240 after administration of insulin. The patient agrees with plans for discharge, close follow-up with his doctor. Return precautions were given. Departure Impression Primary Impression: Diabetes mellitus Additional Impression: Uncontrolled type 2 diabetes mellitus Disposition: HOME, SELF-CARE Condition: Stable/Unchanged Departure-Patient Inst. Decision time for Depature: 23:01 Referrals: NADIA HSU MD (PCP/Family) Primary Care Physician Patient Instructions: Diabetes Type 2 (DC) Add. Discharge Instructions: Take your medications as previously prescribed. Follow up with Dr. Casey tomorrow for recheck. Return back to the emergency room for any worsening symptoms or any other concerns as needed. All discharge instructions reviewed with patient and/or family. Voiced understanding. MAURICE RETANA Apr 06, 2018 23:01
[2018-04-06 23:07] LABS: BACTERIA,URINE NEGATIVE /HPF; WBC,URINE RARE /HPF
[2018-04-06 23:10] VITALS: BP 129/80
== END 2018-04-06 23:10 | disposition home or self-care (01) ==
LOC: EDUNIT# 19:58 → ER 19:59
DX: E11.65 Type 2 diabetes mellitus with hyperglycemia (principal); J44.9 Chronic obstructive pulmonary disease, unspecified; I10 Essential (primary) hypertension; K21.9 Gastro-esophageal reflux disease without esophagitis; Z85.038 Personal history of other malignant neoplasm of large intestine; Z80.0 Family history of malignant neoplasm of digestive organs; Z79.84 Long term (current) use of oral hypoglycemic drugs; Z91.14 Patient's other noncompliance with medication regimen; Z88.6 Allergy status to analgesic agent; Z87.891 Personal history of nicotine dependence; Z90.49 Acquired absence of other specified parts of digestive tract
CPT/HCPCS: 36415; 80053; 81000; 82150; 82962; 83690; 85025

== ENCOUNTER → 2018-05-10 | Outpatient (CLI) | payer MEDICARE, OTHER ==
[~2018-05-10] MED LIST changes: +ACHD5005 PO; +CATHETER FLUSH 10 ML SYR IV PRN; +DOCU-143 PO; +IOHEXOL 350 MG/ML 150 ML (OMNIPAQUE 350) VIAL IV ONE; +METF-399 PO; -METF10002 PO; +NS 250 ML (IVPB) BAG IV ONE; +RECEIVED CONTRAST (Hold Metformin) IV SCH
--- NOTE | 2018-05-10 17:54 | Diagnostic Imaging Report ---
PROCEDURE: CT angiography of the chest with contrast. TECHNIQUE: Multiple contiguous axial images were obtained through the chest after uneventful bolus administration of intravenous contrast. Reconstructed CTA MIP acquisitions were also performed. INDICATION: COPD, dyspnea. COMPARISON: I have no previous for direct comparison. Study correlated with overlapped images of the lower chest obtained during abdominal CT 03/10/2018. FINDINGS: There is no intraluminal pulmonary arterial filling defects. There is benign calcified granulomatous disease in the subcarinal compartment. There is centrilobular emphysema greatest in the pulmonary apices. There are a few subpleural micronodules, likely areas of scarring, no dominant or suspect lung mass. There is no thoracic lymphadenopathy and there is no evidence for pneumonia. There is no thoracic effusion or pneumothorax. No acute chest wall pathology. The upper abdomen reveals gallstones with postoperative changes to the midline ventral abdominal wall as well as aortocaval and portocaval right upper quadrant lymphadenopathy not significantly changed from a previous abdominal CT. IMPRESSION: Negative for PE or acute chest pathology. Benign granulomatous residua with no suspicious chest mass. Pathological abdominal lymphadenopathy, partially visualized, unchanged from a previous abdominal CT. Dictated by: Dictated on workstation # [id number]
== END ==
LOC: RAD 15:45
PROVIDERS: ATTEND Nurse Practitioner Family
DX: J44.9 Chronic obstructive pulmonary disease, unspecified (principal); R59.0 Localized enlarged lymph nodes
CPT/HCPCS: 71275

== ENCOUNTER 2018-05-12 15:19 | Outpatient (RCR) | payer MEDICARE, OTHER ==
[~2018-05-12 15:19] MED LIST changes: -CATHETER FLUSH 10 ML SYR IV PRN; -IOHEXOL 350 MG/ML 150 ML (OMNIPAQUE 350) VIAL IV ONE; -NS 250 ML (IVPB) BAG IV ONE; -RECEIVED CONTRAST (Hold Metformin) IV SCH
== END 2018-05-23 | disposition home or self-care (01) ==
LOC: ONC 15:19
PROVIDERS: ATTEND Internal Medicine Hematology & Oncology
DX: C18.2 Malignant neoplasm of ascending colon (principal); J44.9 Chronic obstructive pulmonary disease, unspecified; E11.9 Type 2 diabetes mellitus without complications; Z87.891 Personal history of nicotine dependence; Z79.84 Long term (current) use of oral hypoglycemic drugs; Z79.899 Other long term (current) drug therapy
CPT/HCPCS: 99214

== ENCOUNTER 2018-05-17 20:00 | Outpatient (CLI) | payer MEDICARE, OTHER | END 2018-05-18 05:47 | disposition home or self-care (01) | LOC: SLEEP 20:00 | PROVIDERS: ATTEND Nurse Practitioner Family | DX: G47.10 Hypersomnia, unspecified (principal); G47.50 Parasomnia, unspecified | CPT/HCPCS: 95810 ==

== ENCOUNTER → 2018-05-18 | Outpatient (CLI) | payer MEDICARE, OTHER ==
--- NOTE | 2018-05-20 09:30 | Diagnostic Imaging Report ---
PET/CT INDICATION: Colon cancer TECHNIQUE: PET/CT imaging was obtained from the base of the skull through the pelvis after the administration of 13.14 mCi of F-[address] imaging was utilized for localization and attenuation correction purposes. The low energy CT utilized for attenuation correction is not considered to be of high enough spatial resolution to allow in and of itself a separate anatomical analysis. There are no previous PET/CT examinations available for comparison. By history, the patient has a diagnosis of colon carcinoma and did undergo a colon resection in March of 2018. The CT abdomen/pelvis exam of 03/10/2018 did note a 19 mm low-density mass in the right lobe of the liver. There is also portacaval and central retroperitoneal lymphadenopathy. On this exam there is a poorly defined area of hypermetabolic activity in the right lobe of the liver. I am not certain that this corresponds to the suspected area of low density seen on the CT exam but this finding should be considered neoplastic until proven otherwise. This has a maximum SUV of 5.5. There are 2 other much smaller areas of increased metabolic activity. These also have SUV values in the 4-5 range. There is a similar sized more hyperintense area of abnormal uptake in the left lobe of the liver. This has a maximum SUV of 6.7 and should be considered neoplastic as well. The nodes in the portacaval region seen on the previous exam are also hypermetabolic. The maximum SUV in this area is 7.1. The retroperitoneal adenopathy adjacent to the aorta and inferior vena cava seen previously is only slightly hypermetabolic however. The maximum SUV in this area is 3.9. No other hypermetabolic activity seen to suggest the presence of neoplasm. There is a fair amount of physiologic activity throughout the large and small bowel and there is excretion of the radiotracer by both kidneys. The CT images fail to show any sign acute [place]. As on the previous exam there is cholelithiasis but there is no for acute cholecystitis. There is distortion of the mesenteric fat about the region of the surgical resection. Most likely is a sequela of the patient's prior surgical procedure. IMPRESSION: 1. There is hypermetabolic activity within the liver and in the portacaval nodes seen previously. These nodes should be considered neoplastic until proven otherwise. 2. The retroperitoneal adenopathy is not nearly as hyperintense as the abnormalities involving the liver and the portacaval region. Even so, these nodes are most likely involved by neoplasm as well. 3. There is no other neoplastic activity evident. 4. There are postsurgical changes involving the mid abdomen consistent the patient's recent colon resection history. There is no acute abnormality evident. Dictated by: Dictated on workstation # [id number]
== END ==
LOC: RAD 07:40
PROVIDERS: ATTEND Internal Medicine Hematology & Oncology
DX: C18.9 Malignant neoplasm of colon, unspecified (principal); K76.89 Other specified diseases of liver; R59.0 Localized enlarged lymph nodes; Z90.49 Acquired absence of other specified parts of digestive tract

== ENCOUNTER → 2018-05-19 | Outpatient (CLI) | payer MEDICARE, OTHER ==
[~2018-05-19] MED LIST changes: +RT-ALBUTEROL SULF 2.5 MG/3 ML PRE-MIX VIAL INH ONE; +RT-ALBUTEROL SULF 2.5 MG/3 ML PRE-MIX VIAL ONE
== END ==
LOC: RT 13:48
PROVIDERS: ATTEND Nurse Practitioner Family
DX: J44.9 Chronic obstructive pulmonary disease, unspecified (principal); R06.00 Dyspnea, unspecified; Z87.891 Personal history of nicotine dependence
CPT/HCPCS: 94060; 94726; 94729